=== PATIENT | male | born 1965 | race Caucasian/White ===

== ENCOUNTER → 2020-02-18 09:48 | Outpatient (CLI) | payer BC, SELFPAY ==
--- NOTE | ~2020-02-18 | MR_ITS ---
EXAMINATION: MR knee RT wo con DATE: 02/18/2020 10:32 INDICATION: Anterior and posterior right knee pain post hyperextension injury a few months prior. TECHNIQUE: Magnetic resonance imaging (MRI) of the right knee was performed without intravenous contr ast. Sequences included coronal PD-weighted FSE, coronal PD-weighted FS FSE, sagittal T2-weighted FS E, sagittal PD-weighted FS FSE and axial PD weighted fat saturated FSE. COMPARISON: Radiographs dated 12/17/2019 FINDINGS: Medial compartment: Complex medial meniscal tear involving the body and posterior horn. The posterior horn is small consi stent with loss of meniscal tissue. There is a meniscal flap cysts along the inner margin of the ante rior body, unclear whether this arises from the posterior horn or body. No other displaced meniscal t issue identified. Mild partial thickness cartilage loss with smooth chondral surface along the medial aspect of the anterior weightbearing medial femoral condyle. Focal chondral fissure with tiny focus of underlying subarticular edema at the anteromedial aspect of the medial tibial plateau. Lateral compartment: Longitudinal horizontal tear extending to near the free edge of the body and posterior horn of the la teral meniscus. Deep chondral ulceration at the medial side of the lateral tibial plateau.. There is a small underlying central subchondral osteophyte at the posterior aspect of the lateral tibial plate au underlying the free edge of the posterior horn of the meniscus. Cartilage along the weightbearing lateral femoral condyle appears relatively preserved. Patellofemoral compartment: Deep chondral ulceration at the central aspect of the lateral trochlea with underlying subarticular c ystic change and surrounding marrow edema. Shallow chondral ulceration without degenerative subchondr al changes along the cephalad aspect of the trochlear groove. Shallow fissuring involving less than 5 0% the cartilage thickness and without degenerative subchondral changes at the lateral patellar facet and apical ridge. Ligaments and tendons: Anterior and posterior cruciate ligaments are normal. The medial collateral ligament and fibular naga ateral ligament complex are normal. Mild distal quadriceps tendinopathy. The patellar tendon is kristi l. The visualized medial and lateral hamstring tendons as well as the iliotibial band are normal. Fluid: Minimal joint effusion at the suprapatellar pouch. Multilobulated approximately 1.9-2 0.0 x 1.0 cm ga nglion cyst in the recess posterior superior to the posterior cruciate ligament. No loose osteochondr al bodies identified. Small Mcghee's cyst. Prepatellar edema without discrete bursal fluid collection. Osseous/other: Bone alignment is normal. No fracture or pathologic marrow replacing process. IMPRESSION: 1. Complex medial meniscal tear and a longitudinal horizontal tear of the lateral meniscus. 2. Mild tricompartmental osteoarthritis with regions of high-grade chondromalacia in all 3 compartmen ts. 3. Minimal right knee joint effusion and small Mcghee's cyst. 4. Mild distal quadriceps tendinopathy. Reviewed, dictated and finalized at location A. IMPRESSION: 1. Complex medial meniscal tear and a longitudinal horizontal tear of the later al meniscus. 2. Mild tricompartmental osteoarthritis with regions of high-grade chondromalac ia in all 3 compartments. 3. Minimal right knee joint effusion and small Mcghee's cyst. 4. Mild distal quadriceps tendinopathy.
== END ==
PROVIDERS: Visit Provider Nurse Practitioner Family
DX: M17.11 Unilateral primary osteoarthritis, right knee (principal); M25.461 Effusion, right knee; S83.231A Complex tear of medial meniscus, current injury, right knee, initial encounter; X58.XXXA Exposure to other specified factors, initial encounter
CPT/HCPCS: 73721

== ENCOUNTER 2021-07-21 16:59 | Inpatient (IN) | payer BC, SELFPAY ==
[2021-07-21] VITALS (18 sets, daily range): BP systolic 121–147; BP diastolic 81–97; PULSE 70–102; RESP 18–26; TEMP 36.2–36.8; O2SAT 92–96; BMI 35.9
--- NOTE | ~2021-07-21 | CT_ITS ---
EXAMINATION: CTA chest PE protocol DATE: 07/21/2021 19:29 INDICATION: Shortness of breath. COVID-19 pneumonia. TECHNIQUE: Computed tomography angiography (CTA) of the chest was performed with 100 mL Omnipaque-350 intravenous contrast timed to evaluate the pulmonary arteries. Coronal maximum intensity projection 3D-reconstructions were created by the technologist. Automated exposure control and iterative reconst ruction technique were employed. The dose-length product was 965.88 mGy-cm. COMPARISON: Chest single view 07/21/2021 FINDINGS: There are patchy groundglass and airspace opacities involving all lobes. Calcified left horace g nodules and calcified left hilar and mediastinal lymph nodes are consistent with old granulomatous disease. No pleural effusion. The heart size is normal. No pericardial effusion. There is no pulmonar y embolus. There are changes of cholecystectomy. There is severe cervical spondylosis and mild thorac ic spondylosis. IMPRESSION: 1. No pulmonary embolus. 2. Diffuse lung disease, consistent with COVID-19 pneumonia. Reviewed, dictated and finalized at location A.
--- NOTE | ~2021-07-21 | XR_ITS ---
EXAMINATION: XR chest 1V portable DATE: 07/21/2021 17:51 INDICATION: COVID-19 pneumonia. TECHNIQUE: A single frontal view of the chest was obtained. COMPARISON: Chest 2 views 12/16/2016 FINDINGS: The chest demonstrates clear lungs without pneumonia, pleural effusion, or pneumothorax. Th e heart size is normal. IMPRESSION: 1. No acute cardiopulmonary disease. Reviewed, dictated and finalized at location A.
--- NOTE | 2021-07-21 16:59 | ECG_ITS ---
Measurements Intervals [place] Rate: 94 P: 62 DC: 170 QRS: 13 QRSD: 85 T: 10 QT: 331 QTc: 414 Interpretive Statements SINUS RHYTHM INFERIOR INFARCT, AGE INDETERMINATE BASELINE ARTIFACT- I, II, III, AVR, AVL, AVF, V1-V6 ABNORMAL ECG Electronically Signed On 07-21-2021 20:10:54 CDT by Franki Saba D.O.
[2021-07-21 17:40] LABS: Eosinophils Percent Auto 0.3 % (0-4.4); Hematocrit 44.7 % (42.0-52.0); Immature Granulocyte Absolute 0.02 K/mm3 (0.00-0.031); Immature Granulocyte Percent A 0.5 % (0-0.5); Lymphocytes Absolute Auto 0.87 K/mm3 (0.9-3.2); Lymphocytes Percent Auto 22.9 % (18.3-44.2); Mean Corpuscular HGB Conc 33.6 g/dl (32-36); Mean Corpuscular Hemoglobin 29.6 pg (26-34); Mean Corpuscular Volume 88.2 fl (80-100); Mean Platelet Volume 10.9 fl (7.4-10.4); Monocytes Absolute Auto 0.3 K/mm3 (0.1-0.6); Monocytes Percent Auto 6.6 % (2.6-8.5); Neutrophils Absolute Auto 2.7 K/mm3 (1.3-6.7); Neutrophils Percent Auto 69.7 % (45.5-73.1); Platelet Count Result 173 k/mm3 (150-375); Red Blood Count 5.07 M/mm3 (4.6-6.20); Red Cell Distribution Width 12.5 % (11.5-14.5); White Blood Count 3.8 K/mm3 (4.5-10.0)
[2021-07-21 17:56] LABS: Anion Gap 9 mmol/L (8-16); Blood Urea Nitrogen 18 mg/dL (9-20); Carbon Dioxide 24 mmol/L (22-30); Chloride 101 mmol/L (98-107); Estimated CRCL calculation 116 ml/min; Estimated Glomerular Filt Rate > 60; Glucose 107 mg/dL (65-110); Potassium 3.8 mmol/L (3.4-5.0); Sodium 134 mmol/L (137-145)
--- NOTE | 2021-07-21 18:13 | ED.SOB ---
HPI - SOB/Dyspnea General Chief Complaint: Shortness of Breath/Dyspnea <Akilah Sharp MD - Last Filed: 07/23/21 07:13> Stated Complaint: have covid, breathing difficulty <Akilah Sharp MD - Last Filed: 07/23/21 07:13> Time Seen by Provider: 07/21/21 17:59 <Akilah Sharp MD - Last Filed: 07/23/21 07:13> Source: patient <Akilah Sharp MD - Last Filed: 07/23/21 07:13> Mode of arrival: ambulatory <Akilah Sharp MD - Last Filed: 07/23/21 07:13> Limitations: no limitations <Akilah Sharp MD - Last Filed: 07/23/21 07:13> History of Present Illness HPI Narrative: This is a 56 year old COVID+ male with history of anxiety and hyperlipidemia who presents for evaluation of weakness. Patient states he developed symptoms on Thursday. He reports loss of taste and smell and he developed headache on Thursday. He was found to be positive for covid. He reports due to his loss of taste he has not eaten in 1 week. HE reports nausea with eating but he denies abdominal pain. He reports some sob and a mild cough. He denies chest pain. His main complain is that he is weak. <Akilah Sharp MD - Last Filed: 07/23/21 07:13> Related Data Home Medications: Home Medications Medication Instructions Recorded Confirmed atorvastatin [Lipitor] 20 mg PO DAILY 07/21/21 07/21/21 citalopram [Celexa] 40 mg PO DAILY 07/21/21 07/21/21 <Akilah Sharp MD - Last Filed: 07/23/21 07:13> Allergies/Adverse Reactions: Allergies Allergy/AdvReac Type Severity Reaction Status Date / Time morphine Allergy Severe NAUSEA, Verified 12/03/20 17:27 VOMITING Penicillins AdvReac Unknown Unknown Verified 12/03/20 17:27 <Akilah Sharp MD - Last Filed: 07/23/21 07:13> Review of Systems Review of Systems: All systems reviewed & are unremarkable except as noted in HPI and below <Akilah Sharp MD - Last Filed: 07/23/21 07:13> [facility] [place] Past Medical History Medical History: Medical History (Updated 07/22/21 @ 12:55 by Alisia Perkins PA-C) BMI 36.0-36.9,adult Diabetes mellitus A1C on 02/18/20 was 5.9 Gastroesophageal reflux disease Hypercholesterolemia Morbid (severe) obesity due to excess calories Obesity <Akilah Sharp MD - Last Filed: 07/23/21 07:13> Surgical History Surgical History: Surgical History History of cholecystectomy 1992 Hx of rotator cuff surgery Right 2009-Dr. Lei <Akilah Sharp MD - Last Filed: 07/23/21 07:13> Family History Family History: Family History Father Hypertension Grandparent Family history of lung cancer Mother Family history of coronary artery disease Dementia Hyperlipidemia Stented coronary artery Sibling No problems noted. Other Family history of heart disease in male family member before age 55 <Akilah Sharp MD - Last Filed: 07/23/21 07:13> Social History Social History: Social History Smoking status: Never smoker Second hand tobacco smoke exposure: No Alcohol intake: never Substance use: never Additional occupation/education comments: [employer] Gender identity (if verbalized by the patient): Male Spiritual care concerns: No <Akilah Sharp MD - Last Filed: 07/23/21 07:13> Exam Const: General: no acute distress and alert <Akilah Sharp MD - Last Filed: 07/23/21 07:13> Orientation/consciousness: patient oriented x3 <Akilah Sharp MD - Last Filed: 07/23/21 07:13> Eyes: EOM: EOMs intact bilaterally <Akilah Sharp MD - Last Filed: 07/23/21 07:13> Chest: Chest palpation & inspection: normal inspection of the chest <Akilah Sharp MD - Last Filed: 07/23/21 07:13> Resp: Effort & Inspection: normal respiratory effort and no retractions <Akilah Melendez
[2021-07-21 18:53] LABS: Alanine Aminotransferase 45 U/L (4-50); Albumin Level 4.3 g/dL (3.5-5.1); Alkaline Phosphatase 73 U/L (38-126); Aspartate Amino Transferase 52 U/L (17-59); Bilirubin,Total 0.9 mg/dL (0.2-1.3); Magnesium 1.9 mg/dL (1.6-2.3)
[2021-07-21] MEDS: PANTOPRAZOLE SODIUM IV 40 MG VIAL IV PUSH (19:14)
[2021-07-21] MEDS: SODIUM CHLORIDE 0.9% IV 1,000 ML 999 ML IV CONT (19:14)
[2021-07-21] MEDS: ONDANSETRON INJ 4 MG/2 ML VIAL IV PUSH (19:14)
--- NOTE | 2021-07-21 20:25 | PC.NURSE ---
Walking SpO2 on RA 89-90%
[2021-07-21] MEDS: DEXAMETHASONE SOD PHOS INJ 4 MG/ML VIAL 6 MG IV PUSH (20:41)
[2021-07-21 22:24] LABS: Add Urine Microscopic? YES; Appearance Urine Clear (Clear); Bacteria Urine Trace /hpf; Bilirubin Urine Negative (Negative); Blood Urine Negative (Negative); Color Urine Yellow (Yellow); Glucose Urine UA Negative (Negative); Ketones Urine Trace mg/dL (Negative); Leukocyte Esterase Ur Negative LEU/UL (Negative); Mucus Urine Moderate /lpf; Nitrate Urine Negative (Negative); Protein Urine 2+ mg/dL (Negative); RBC Urine 0-2 /hpf (0-2); Specific Grav Ur > 1.060 (1.001-1.035); Squamous Epithelial Cell Urine Rare /hpf (Few); Urobilinogen Urine Negative mg/dL (<2.0); WBC Urine 0-3 /hpf
--- NOTE | 2021-07-21 22:25 | PM.IMHP ---
H&P: HPI History of Present Illness Date/Time: 07/21/21 22:25 Chief Complaint: General malaise Narrative: This is a 56-year-old male with past medical history significant for dyslipidemia, depression, GERD. Patient tested positive for COVID a roughly 6 days prior to presenting to our emergency room he was having in loss of taste and smell poor appetite body aches and pains chills and fevers and just feeling overall very fatigued and with lack of energy has not been able to eat did in the last several days he try some sport drinks to keep hydrated and finally decided to come to our emergency room due to worsening general malaise fatigue shortness of breath poor appetite, he denies any cough or sputum production no abdominal pain no nausea no vomiting no diarrhea. Preliminary workup was significant for CT PE protocol negative for acute pulmonary embolism but with diffuse lung infiltrates consistent with COVID 19 pneumonia. Review of Systems Review of Systems: Generalized malaise muscle aches and pains loss of taste and smell shortness of breath rigors chills fevers Constitutional: Constitutional: Reports chills, Reports fatigue, Reports fever(s), Reports lethargy, Reports malaise and Reports weakness Eyes: Eyes: Denies change in vision ENT: Denies dysphagia, Denies nasal congestion, Denies nasal discharge, Denies nasal obstruction and Denies odynophagia Cardiovascular: Cardiovascular: Denies chest pain Respiratory: Respiratory: Reports cough Genitourinary: Genitourinary: Reports no additional male genitourinary complaints Musculoskeletal: Musculoskeletal: Reports myalgias Integumentary/Breasts: Skin/Breast: Reports system reviewed and no additional complaints, except as docu Neurologic: Reports system reviewed and no additional complaints, except as documented Psychiatric: Psychiatric: Reports no additional psychiatric complaints Endocrine: Endocrine: Reports no additional endocrine complaints Hematologic/Lymphatic: Hematologic/Lymphatic: Reports no additional hematologic/lymphatic complaints Allergic/Immunologic: Allergic/Immunologic: Reports no additional allergic/immunologic complaints PMFSH Past Medical History Medical History BMI 36.0-36.9,adult Diabetes mellitus A1C on 02/18/20 was 5.9 Gastroesophageal reflux disease Hypercholesterolemia Morbid (severe) obesity due to excess calories Obesity Surgical History Surgical History History of cholecystectomy 1992 Hx of rotator cuff surgery Right 2010-Dr. Lei Family History Family History Father Hypertension Grandparent Family history of lung cancer Mother Family history of coronary artery disease Dementia Hyperlipidemia Stented coronary artery Sibling No problems noted. Other Family history of heart disease in male family member before age 55 Social History Social History Smoking status: Never smoker Second hand tobacco smoke exposure: No Alcohol intake: never Substance use: never Additional occupation/education comments: [employer] Gender identity (if verbalized by the patient): Male Spiritual care concerns: No Meds Home Medications and Allergies Home Medications Medication Instructions Recorded Confirmed Type blood sugar diagnostic #50 each 12/16/19 07/21/21 Rx blood-glucose meter #1 each 12/16/19 07/21/21 Rx famotidine 20 mg tablet 20 mg PO BID #180 tablet 03/21/21 07/21/21 Rx atorvastatin [Lipitor] 20 mg PO DAILY 07/21/21 07/21/21 History citalopram [Celexa] 40 mg PO DAILY 07/21/21 07/21/21 History Allergies Allergy/AdvReac Type Severity Reaction Status Date / Time morphine Allergy Severe NAUSEA, Verified 12/03/20 17:27 VOMITING Penicillins AdvReac Unknown Unknown Verifi
--- NOTE | 2021-07-21 23:40 | ADMGEN ---
This patient, Brain Cortez, was admitted to [facility] Surg Room 333-01. Patient/family oriented to hospital policies and general routines including ID bracelet, bed and alarms, visiting hours, pain management, procedures, bathroom and other care routines, personal items, smoking policy, room service/diet, and visiting hours. Information on how to activate the Rapid Response Team has been discussed. Patient/Family are encouraged to report perceived risks to care and to ask questions if they do not understand what they are told or what they should do.
[2021-07-22] VITALS (10 sets, daily range): BP systolic 110–136; BP diastolic 60–98; PULSE 58–71; RESP 17–22; TEMP 35.7–36.3; O2SAT 91–98
[2021-07-22] MEDS: ACETAMINOPHEN 325 MG TABLET 650 MG PO (00:04)
[2021-07-22 02:59] LABS: Alanine Aminotransferase 40 U/L (4-50); Estimated CRCL calculation 116 ml/min; Estimated Glomerular Filt Rate > 60
[2021-07-22 03:11] LABS: INR 0.9; Prothrombin Time 12.4 Seconds (11.1-14.7)
[2021-07-22] MEDS: REMDESIVIR 200 MG/NS 250 ML 200 MG/250 ML BAG 250 MG IVPB (03:23)
[2021-07-22] MEDS: ENOXAPARIN 40 MG/0.4 ML SYRINGE SUB-Q ×2 (10:56→22:13)
[2021-07-22] MEDS: CITALOPRAM HYDROBROMIDE 20 MG TABLET 40 MG PO (10:58)
[2021-07-22] MEDS: ATORVASTATIN 20 MG TABLET PO (10:58)
[2021-07-22] MEDS: FAMOTIDINE 20 MG TABLET PO ×2 (10:59→17:18)
--- NOTE | 2021-07-22 12:21 | PM.IMPN ---
Progress Note: A&P Assessment and Plan (1) Pneumonia due to 2019-nCoV: Code(s): U07.1 - COVID-19; J12.82 - Pneumonia due to coronavirus disease 2019 Status: Acute Assessment and Plan: Tested positive on 07/15/21 at outside facility. CTA showed diffuse lung disease consistent with COVID 19 pneumonia. Continue remdesivir, started on 07/22. ALT within normal limits Continue dexamethasone, started on 07/21 Convalescent plasma ordered Supportive care to include bronchodilators, expectorants, antipyretics, and incentive spirometry Trend acute phase reactants Continue isolation precautions The patient is not vaccinated for COVID-19. Reports he also had COVID-19 about 1 year ago. (2) Mixed hyperlipidemia: Code(s): E78.2 - Mixed hyperlipidemia Status: Acute Assessment and Plan: LFTs wnl. Continue atorvastatin (3) Diabetes mellitus: Code(s): E11.9 - Type 2 diabetes mellitus without complications Status: Acute Assessment and Plan: Last documented A1c is 5.9 from January 2020. Initiate Accu-Cheks, sliding scale insulin, hypoglycemic protocol Check updated A1c Subjective Date/time seen: 07/22/21 12:21 Interval history: Date of service: 07/22/2021 Brain Cortez is a 56-year-old male with history diabetes mellitus, hyperlipidemia who is seen in follow-up for COVID 19 pneumonia. He is feeling very weak and run down. He reports his biggest complaint is that he lacks stamina. He is able to get up and ambulate back and forth between his bed and the restroom, but does note dyspnea on exertion. He also endorses conversational dyspnea and feels that he is working to breathe when talking on the phone. He has occasional cough, worsened with deep inspiration. Very infrequent clear sputum production. Denies wheezing, orthopnea, PND. No nausea, vomiting, fevers, or chills. He had been having diarrhea but has not had any stools for the past 2 days. He endorses anosmia and dysgeusia and has had overall poor p.o. intake, stating he simply has no appetite. He endorses generalized body aching. He denies urinary symptoms. He had a frontal headache that seems to be improving. Denies dizziness or lightheadedness. At the patient's request, I attempted to call his to provide updates. Left a voicemail. Review of Systems Review of Systems: All systems reviewed & are unremarkable except as noted in HPI and below Exam Narrative: Mr. Cortez is a well-nourished, well-appearing 56-year-old male who is lying supine in bed. He appears comfortable and is in NARD. Neuro: awake, alert and oriented x4, speech clear, no focal neuro deficits noted HEENMT: normocephalic, atraumatic, EOMI, sclerae anicteric, moist oral mucosa Neck: supple, no lymphadenopathy Respiratory: Diminished breath sounds bilaterally, no crackles, wheezes, or rhonchi. Conversational dyspnea noted. No increased work of breathing, no use of accessory muscles. Dry cough noted on exam. Cardio: regular rate, regular rhythm with S1-S2 Abdomen: nondistended, normoactive bowel sounds, soft, nontender to palpation Extremities: no edema, erythema, or tenderness to palpation, DP pulses 2+ bilaterally Skin: no rashes or lesions, warm and dry Psych: appropriate mood and affect, judgment and insight intact Objective Data Vital Signs Vital Signs: Vital Signs - 24 hr 07/21/21 17:01 07/21/21 18:01 07/21/21 18:16 Temperature 97.2 F L Pulse Rate 102 H 99 99 Respiratory Rate 18 26 H 26 H Blood Pressure 145/87 H 133/86 147/89 H Pulse Oximetry 95 94 92 07/21/21 18:31 07/21/21 19:18 07/21/21 20:00 Temperature Pulse Rate 99 99 82 Respiratory Rate 26 H 26 H 24 H Blood Pressure 144/97 H 121/84 144/97 H Pulse Oximetry 94 94 94 07/21/21 21:00 07/21/21 21:01 07/21/21 21:16 Temperature Pulse Rate 70 Respiratory Rate 24 H Blood Pressure 144/82 H Pulse Oximetry 95 96 96 07/21/21
[2021-07-22] MEDS: SODIUM CHLORIDE 0.9% IV 250 ML 30 ML IV CONT (12:51)
[2021-07-23] VITALS (7 sets, daily range): BP systolic 115–135; BP diastolic 59–82; PULSE 51–61; RESP 16–20; TEMP 36.2–37.2; O2SAT 94–96
[2021-07-23 06:45] LABS: Hematocrit 36.9 % (42.0-52.0); Hemoglobin 12.4 g/dL (14.0-18.0); Mean Corpuscular HGB Conc 33.6 g/dl (32-36); Mean Corpuscular Hemoglobin 29.6 pg (26-34); Mean Corpuscular Volume 88.1 fl (80-100); Mean Platelet Volume 10.8 fl (7.4-10.4); Platelet Count Result 168 k/mm3 (150-375); Red Blood Count 4.19 M/mm3 (4.6-6.20); Red Cell Distribution Width 12.3 % (11.5-14.5); White Blood Count 6.5 K/mm3 (4.5-10.0)
[2021-07-23 06:57] LABS: Prothrombin Time 13.4 Seconds (11.1-14.7)
[2021-07-23 07:49] LABS: Alanine Aminotransferase 38 U/L (4-50); Albumin Level 3.7 g/dL (3.5-5.1); Alkaline Phosphatase 53 U/L (38-126); Anion Gap 5 mmol/L (8-16); Aspartate Amino Transferase 40 U/L (17-59); Bilirubin,Total 0.7 mg/dL (0.2-1.3); Blood Urea Nitrogen 23 mg/dL (9-20); CRP 2.1 mg/dL (<1.0); Calcium 8.9 mg/dL (8.4-10.2); Carbon Dioxide 27 mmol/L (22-30); Chloride 105 mmol/L (98-107); Estimated CRCL calculation 116 ml/min; Estimated Glomerular Filt Rate > 60; Glucose 133 mg/dL (65-110); Lactate Dehydrogenase 538 U/L (313-618); Potassium 4.5 mmol/L (3.4-5.0); Sodium 137 mmol/L (137-145)
[2021-07-23 09:44] LABS: Hemoglobin A1C 6.5 % (<5.7)
[2021-07-23] MEDS: FAMOTIDINE 20 MG TABLET PO ×2 (09:58→16:45)
[2021-07-23] MEDS: ATORVASTATIN 20 MG TABLET PO (09:58)
[2021-07-23] MEDS: ENOXAPARIN 40 MG/0.4 ML SYRINGE SUB-Q ×2 (09:58→22:01)
[2021-07-23] MEDS: CITALOPRAM HYDROBROMIDE 20 MG TABLET 40 MG PO (09:58)
[2021-07-23] MEDS: REMDESIVIR 100 MG/NS 250 ML 100 MG/250 ML BAG 250 MG IVPB (10:00)
--- NOTE | 2021-07-23 15:42 | PM.IMPN ---
Progress Note: A&P Assessment and Plan (1) Pneumonia due to 2019-nCoV: Code(s): U07.1 - COVID-19; J12.82 - Pneumonia due to coronavirus disease 2019 Status: Acute Assessment and Plan: Tested positive on 07/15/21 at outside facility Not vaccinated, reported having COVID 19 1 year ago also CTA showed diffuse lung disease consistent with COVID 19 pneumonia Continue remdesivir, started on 07/22, day 2/5 ALT within normal limits Continue dexamethasone, started on 07/21 Convalescent plasma ordered Wean O2 to keep sats >92% Supportive care (2) Mixed hyperlipidemia: Code(s): E78.2 - Mixed hyperlipidemia Status: Acute Assessment and Plan: LFTs wnl Continue atorvastatin (3) Diabetes mellitus: Code(s): E11.9 - Type 2 diabetes mellitus without complications Status: Acute Assessment and Plan: Hgb A1c 6.5 Continue accu-Cheks, sliding scale insulin, hypoglycemic protocol Monitor Subjective Date/time seen: 07/23/21 15:42 Interval history: pt seen and evaluated; no acute events overnight, on 2L Review of Systems Review of Systems: All systems reviewed & are unremarkable except as noted in HPI and below Exam Const: General: no acute distress, alert and awake Orientation/consciousness: patient oriented x3 HENMT: Head: normocephalic and atraumatic Ears: hearing grossly normal bilaterally and external ears normal Face and sinus: face symmetric Mouth: Yes Normal oral and palatal mucosa present Eyes: Pupils: Equal, round and reactive pupils present EOM: EOMs intact bilaterally Neck: Neck: full ROM, trachea midline and no JVD Thyroid: thyroid normal Chest: Chest palpation & inspection: normal inspection of the chest Resp: Effort & Inspection: normal respiratory effort Cardio: Jugular venous distension: no JVD Rate: regular rate Heart sounds: S1 normal heart sound present and S2 normal heart sound present GI: Inspection: normal to inspection GI Palp: Yes Soft to palpation Percussion: Yes normal to percussion Auscultation: normal bowel sounds : General: Yes no CVA tenderness Back/Spine/Pelvis: Back: no CVA tenderness Skin: General skin exam: normal color Rashes: no rashes Neuro: General: patient oriented x3 and CN's II-XI intact bilaterally Cranial nerves: Yes Equal, round and reactive pupils present Speech: normal speech Psych: Appearance: grossly normal Affect: normal affect Judgement: Good judgement present (Psych) Objective Data Vital Signs Vital Signs: Vital Signs - 24 hr 07/22/21 20:00 07/22/21 22:11 07/23/21 00:02 Temperature 36.1 C L 36.2 C L Pulse Rate 60 60 Respiratory Rate 17 20 Blood Pressure 113/67 120/78 Pulse Oximetry 96 98 96 07/23/21 05:31 07/23/21 08:00 07/23/21 09:55 Temperature 36.2 C L 36.9 C Pulse Rate 61 61 Respiratory Rate 18 16 Blood Pressure 115/66 118/82 Pulse Oximetry 95 96 95 07/23/21 12:00 Temperature 37.2 C Pulse Rate 51 L Respiratory Rate 16 Blood Pressure 134/73 Pulse Oximetry 96 Intake/Output Intake/Output: Intake & Output 07/20/21 07/21/21 07/22/21 07/23/21 23:59 23:59 23:59 23:59 Intake Total 1000 1440 1030 Output Total 800 Balance 3381 844 2265 Meds/Results Medications: Active Medications Generic Name Dose Route Start Last Admin Trade Name Freq PRN Reason Stop Dose Admin Acetaminophen 650 mg 07/21/21 21:40 07/22/21 00:04 Acetaminophen 325 Mg Tablet PO 650 mg Q4H PRN Administration Mild Pain (1-3) or Fever Atorvastatin Calcium 20 mg 07/22/21 09:00 07/23/21 09:58 Atorvastatin 20 Mg Tablet PO 20 mg DAILY ELENA Administration Citalopram Hydrobromide 40 mg 07/22/21 09:00 07/23/21 09:58 Citalopram Hydrobromide 20 Mg Tablet PO 40 mg DAILY ELENA Administration Dexamethasone Sodium Phosphate 6 mg 07/22/21 09:00 07/23/21 11:21 Dexamethasone Sod Phos Inj 10 Mg/Ml 1 Ml Vial IV PUSH 07/31/21 09:01 6 mg DAILY ELENA A
[2021-07-24] VITALS (7 sets, daily range): BP systolic 114–129; BP diastolic 65–79; PULSE 52–94; RESP 14–20; TEMP 36.5–36.9; O2SAT 92–95
[2021-07-24 06:23] LABS: INR 0.9; Prothrombin Time 12.5 Seconds (11.1-14.7)
[2021-07-24 06:32] LABS: Alanine Aminotransferase 42 U/L (4-50); Estimated CRCL calculation 129 ml/min; Estimated Glomerular Filt Rate > 60
[2021-07-24 09:43] LABS: Hematocrit 37.3 % (42.0-52.0); Hemoglobin 12.4 g/dL (14.0-18.0)
[2021-07-24] MEDS: ATORVASTATIN 20 MG TABLET PO (09:46)
[2021-07-24] MEDS: CITALOPRAM HYDROBROMIDE 20 MG TABLET 40 MG PO (09:46)
[2021-07-24] MEDS: ENOXAPARIN 40 MG/0.4 ML SYRINGE SUB-Q (09:47)
[2021-07-24] MEDS: FAMOTIDINE 20 MG TABLET PO (09:47)
[2021-07-24] MEDS: REMDESIVIR 100 MG/NS 250 ML 100 MG/250 ML BAG 250 MG IVPB (09:47)
--- NOTE | 2021-07-24 11:26 | PM.DS ---
DS: Admitting Diagnosis Admitting Diagnosis COVID-19 pneumonia DS: Discharge Diagnosis Discharge Diagnosis (1) Pneumonia due to 2019-nCoV: Code(s): U07.1 - COVID-19; J12.82 - Pneumonia due to coronavirus disease 2019 Status: Acute Assessment and Plan: Tested positive on 07/15/21 at outside facility. CTA showed diffuse lung disease consistent with COVID 19 pneumonia. Received IV remdesivir and dexamethasone. Will continue p.o. dexamethasone at home to complete 10 days. Received convalescent plasma transfusion on 07/22/2021. Supportive care provided including bronchodilators, expectorants, antipyretics, and incentive spirometry. He was weaned to room air. Home O2 eval performed and he had no ongoing oxygen requirements. Discussed COVID-19 precautions. He has not been vaccinated for COVID-19 and reported he believed he had COVID-19 1 year ago when the rest of his family was ill, however he did not get tested.. (2) Mixed hyperlipidemia: Code(s): E78.2 - Mixed hyperlipidemia Status: Acute Assessment and Plan: LFTs wnl. Continue atorvastatin (3) Diabetes mellitus: Code(s): E11.9 - Type 2 diabetes mellitus without complications Status: Acute Assessment and Plan: A1c is 6.5. This has been controlled with diet and exercise and he is not on any medications. Continue monitoring blood sugars and follow-up with PCP for further evaluation. DS: Summary Hospital Course Hospital Course: Date of admission: 07/21/2021 Date of discharge: 07/24/2021 Brain Cortez is a 56-year-old male with history diabetes mellitus and hyperlipidemia who presented to the emergency department on 07/21/2021 with complaints of weakness, headache, and loss of taste and smell. He had tested positive for COVID-19 outside facility. On presentation to the emergency department, his vital signs are stable, he was afebrile, CBC and BMP unremarkable, CXR with no acute cardiopulmonary disease, and CTA with no PE and evidence of diffuse lung disease consistent with COVID 19 pneumonia. He was admitted to the hospitalist service for further evaluation management. Please see above for further details. He had significant symptomatic improvement and was feeling much better. He requested discharge home. He was no longer requiring supplemental oxygen and given his overall improvement, he was determined to no longer require inpatient care. We discussed worrisome signs and symptoms for which to return and he was educated on his medications. COVID-19 precautions discussed. He felt comfortable with plans to return home and will follow-up with his PCP promptly. He was discharged in hemodynamically stable condition on 07/24/2021 Status at Discharge Functional status at discharge: independent ambulation Overall status at discharge: patient is progressing back to baseline Time Spent with Patient Time attestation: Total time spent providing and/or coordinating discharge services: 45 minutes Time spent: Greater than 30 minutes Exam Narrative: Mr. Cortez is a well-nourished, well-appearing 56-year-old male who is lying supine in bed. He appears comfortable and is in NARD. Neuro: awake, alert and oriented x4, speech clear, no focal neuro deficits noted HEENMT: normocephalic, atraumatic, EOMI, sclerae anicteric, moist oral mucosa Neck: supple, no lymphadenopathy Respiratory: Clear to auscultation bilaterally without crackles, wheezes, or rhonchi. Nonlabored breathing Cardio: regular rate, regular rhythm with S1-S2 Abdomen: nondistended, normoactive bowel sounds, soft, nontender to palpation Extremities: no edema, erythema, or tenderness to palpation, DP pulses 2+ bilaterally Skin: no rashes or lesions, warm and dry Psych: appropriate mood and affect, judgment and insight intact DS: Data Data Completed and Pending Labs on day of discharge: Labs from last 24 hours 07/24/21 07/24/21 07/24/21 06:01 06:01
--- NOTE | 2021-07-24 11:31 | PCRCNOTE ---
HOME O2 EVAL COMPLETE, NO REQUIREMENTS
== END 2021-07-24 13:06 | disposition home or self-care (01) | DRG 177 ==
LOC: ANHED 17:59 → ANH3MEDSUR 22:24
PROVIDERS: Emergency Medicine; Physician Assistant; Admitting Provider Internal Medicine; Emergency Provider General Practice; PCP Family Medicine; Visit Provider Internal Medicine
DX: U07.1 COVID-19 (principal); J12.82 Pneumonia due to coronavirus disease 2019; E78.2 Mixed hyperlipidemia; E11.9 Type 2 diabetes mellitus without complications; F41.9 Anxiety disorder, unspecified; K21.9 Gastro-esophageal reflux disease without esophagitis; F32.9 Major depressive disorder, single episode, unspecified; M17.11 Unilateral primary osteoarthritis, right knee; M16.11 Unilateral primary osteoarthritis, right hip; E66.01 Morbid (severe) obesity due to excess calories; Z68.35 Body mass index [BMI] 35.0-35.9, adult; Z90.49 Acquired absence of other specified parts of digestive tract
CPT/HCPCS: 36415; 36430; 71045; 71275; 80048; 80053; 80076; 81001; 82565; 82728; 83036; 83615; 83735; 84460; 85014; 85018; 85025; 85027; 85380; 85610; 86140; 86900; 86901; 93005; 94618; 96361; 96365; 96372; 96375; 96376; 99285; A9270; C9113; G0378; J1100; J1650; J2405; J3010; J7030; J7050; P9059; Q9967

== ENCOUNTER → 2021-08-06 07:07 | Outpatient (CLI) | payer BC, SELFPAY ==
--- NOTE | ~2021-08-06 | XR_ITS ---
EXAMINATION: XR chest 2V DATE: 08/06/2021 07:16 INDICATION: COVID 19 pneumonia, shortness of breath TECHNIQUE: Frontal and lateral views of the chest are obtained COMPARISON: 07/21/2021 FINDINGS: Patchy bilateral airspace opacities persist with interval improvement. There is no pleural effusion or pneumothorax. The cardiomediastinal silhouette is normal. There is mild thoracic spondylo sis. IMPRESSION: 1. Patchy bilateral airspace opacities with interval improvement, consistent with resolving COVID 19 pneumonia. Reviewed, dictated and finalized at location B. IMPRESSION: 1. Patchy bilateral airspace opacities with interval improvement, consistent wi th resolving COVID 19 pneumonia.
== END ==
PROVIDERS: PCP Family Medicine; Visit Provider Nurse Practitioner Family
DX: U07.1 COVID-19 (principal); J12.82 Pneumonia due to coronavirus disease 2019; R91.8 Other nonspecific abnormal finding of lung field
CPT/HCPCS: 71046

== ENCOUNTER 2021-08-13 06:59 | Outpatient (CLI) | payer BC, SELFPAY ==
--- NOTE | ~2021-08-13 | XR_ITS ---
EXAMINATION: XR chest 2V 08/13/2021 07:17 INDICATION: Shortness of breath. Covid 19. PROCEDURE: 2 view chest COMPARISON: Comparison to multiple prior studies sequentially, with oldest reviewed study dated 02/17. FINDINGS: The lungs are clear. The cardiomediastinal silhouette is within normal limits. There are no pleural effusions. There is no pneumothorax suspected. There are cholecystectomy clips. IMPRESSION: 1: NO ACUTE CARDIOPULMONARY DISEASE. Reviewed, dictated and finalized at location A.
== END 2021-08-13 07:00 | disposition home or self-care (01) ==
LOC: ANHIMG 07:04
PROVIDERS: PCP Family Medicine; Visit Provider Nurse Practitioner Family
DX: U07.1 COVID-19 (principal)
CPT/HCPCS: 71046

== ENCOUNTER → 2022-04-07 12:10 | Outpatient (CLI) | payer BC, SELFPAY ==
--- NOTE | ~2022-04-07 | MR_ITS ---
EXAMINATION: MR brain/brain stem wo/w con DATE: 04/07/2022 12:58 INDICATION: Amnesia TECHNIQUE: Magnetic resonance imaging (MRI) of the brain and brainstem was performed without and with 20 mL Multihance intravenous contrast. Sequences included sagittal and axial T1-weighted SE, axial d iffusion-weighted FS SE, axial T2*-weighted GRE, axial T2-weighted FLAIR, and axial T2-weighted FSE. Postcontrast axial and coronal T1-weighted SE was obtained. Apparent diffusion coefficient (ADC) maps were created. COMPARISON: None. FINDINGS: There are no areas of restricted diffusion to suggest acute infarction. No intracranial hemorrhage or abnormal intracranial mass lesion. There are no intraparenchymal signal abnormalities seen on the ot her pulse sequences. The ventricles are symmetric and normal in size. There are no abnormal extra-axi al fluid collections. Flow voids are seen in the cerebral arteries on the T2-weighted sequences consi stent with their expected patency. Mild mucosal thickening in the bilateral ethmoid and maxillary sin uses with posterior layering mucus in the right maxillary sinus. Visualized orbits and soft tissues a re unremarkable. There are no areas of abnormal enhancement on the post contrast images. IMPRESSION: 1. Normal brain. 2. Sinus disease with air-fluid level in right maxillary sinus. Correlate clinically for acute sinusi tis. Reviewed, dictated and finalized at location A. IMPRESSION: 1. Normal brain. 2. Sinus disease with air-fluid level in right maxillary sinus. Correlate clini anusha for acute sinusitis.
== END ==
PROVIDERS: PCP Family Medicine; Visit Provider Nurse Practitioner Family
DX: R41.3 Other amnesia (principal); J32.0 Chronic maxillary sinusitis
CPT/HCPCS: 70553; A9577

== ENCOUNTER → 2022-08-11 16:08 | Outpatient (CLI) | payer BC, SELFPAY ==
--- NOTE | ~2022-08-11 | XR_ITS ---
EXAMINATION: XR knee LT min 4V DATE: 08/11/2022 16:28 INDICATION: Left knee lump. TECHNIQUE: 4 views of left knee were obtained. COMPARISON: Left knee radiographs 07/04/2013 FINDINGS: Bone alignment is normal. No fracture. There is mild osteoarthritis of medial and patellofe moral compartments. No knee joint effusion. There is no abnormal mass. IMPRESSION: 1. Mild left knee osteoarthritis. Reviewed, dictated and finalized at location A.
== END ==
PROVIDERS: PCP Family Medicine; Visit Provider Family Medicine
DX: R22.9 Localized swelling, mass and lump, unspecified (principal); M17.12 Unilateral primary osteoarthritis, left knee
CPT/HCPCS: 73564

== ENCOUNTER 2022-08-21 15:25 | Observation (INO) | payer BC, SELFPAY ==
[2022-08-21] VITALS (12 sets, daily range): BP systolic 113–160; BP diastolic 61–95; PULSE 54–72; RESP 13–20; TEMP 36.1–36.7; O2SAT 98–99; BMI 34.7
--- NOTE | ~2022-08-21 | CT_ITS ---
EXAMINATION: CTA chest DATE: 08/21/2022 15:57 INDICATION: Aortic dissection TECHNIQUE: Computed tomography angiography (CTA) of the chest was performed with 100 mL Omnipaque-350 intravenous contrast timed to evaluate the pulmonary arteries. Coronal maximum intensity projection 3D-reconstructions were created by the technologist. Automated exposure control and iterative reconst ruction technique were employed. Exam dose: 1030.44 mGy-cm total exam DLP. COMPARISON: None. FINDINGS: There is no thoracic aortic aneurysm or dissection. There is cardiomegaly. No pericardial or pleural effusion. There is nonspecific mild bilateral hilar and mediastinal lymphadenopathy. There is patchy mild ground glass density scattered throughout the lungs There is diffuse hepatic steatosis. Status post cholecystectomy. Diverticulosis of the colon. No suspicious osteolytic or osteosclerotic lesions. IMPRESSION: No thoracic aortic dissection Patchy bilateral ground glass infiltrates and nonspecific mild bilateral hilar and mediastinal lympha denopathy, likely reactive Reviewed, dictated and finalized at Location A. Reviewed, dictated and finalized at location B. IMPRESSION: No thoracic aortic dissection Patchy bilateral ground glass infiltrates and nonspecific mild bilateral hilar and mediastinal lymphadenopathy, likely reactive
--- NOTE | ~2022-08-21 | XR_ITS ---
EXAMINATION: XR chest 1V portable DATE: 08/21/2022 16:10 INDICATION: Chest pain. TECHNIQUE: A single frontal view of the chest was obtained. COMPARISON: Chest 2 views 08/13/2021, chest CT 08/21/2022 FINDINGS: The chest demonstrates clear lungs without pneumonia, pleural effusion, or pneumothorax. Th e heart size is normal. IMPRESSION: 1. No acute cardiopulmonary disease. Reviewed, dictated and finalized at location A.
--- NOTE | 2022-08-21 15:30 | ECG_ITS ---
Measurements Intervals [place] Rate: 61 P: 23 SD: 160 QRS: 11 QRSD: 92 T: 34 QT: 381 QTc: 386 Interpretive Statements SINUS RHYTHM BASELINE ARTIFACT- I, II, III, AVR, V1, V4-V5 NORMAL ECG COMPARED TO ECG 07/21/2021 17:11:19 NO SIGNIFICANT CHANGES Electronically Signed On 08-21-2022 16:06:48 CDT by Franki Saba D.O.
[2022-08-21] MEDS: fentaNYL CITRATE INJ (*CRX) 100 MCG/2 ML VIAL IV PUSH (15:32)
--- NOTE | 2022-08-21 15:42 | ED.CHESTPAIN ---
HPI - Chest Pain General Chief Complaint: Chest Pain Stated Complaint: unspec Time Seen by Provider: 08/21/22 15:30 History of Present Illness HPI narrative: Patient is a 57-year-old male with a history of hyperlipidemia, GERD presenting with chest pain. Patient states that about 2 days ago he had substernal chest pressure and he went to the ER. He was able to be discharged but was told to return if his symptoms returned. Today, he developed chest pain that radiates to his upper back. Associated with shortness of breath. States that his brother and his mother both have had multiple cardiac stents so he is concerned it is his heart. He denies fevers, headache, cough, abdominal pain, nausea or vomiting, diarrhea, leg swelling, dysuria. Related Data Allergies Allergy/AdvReac Type Severity Reaction Status Date / Time morphine Allergy Severe NAUSEA, Verified 08/20/22 09:19 VOMITING Penicillins AdvReac Unknown Unknown Verified 08/20/22 09:19 Review of Systems Review of Systems: All systems reviewed & are unremarkable except as noted in HPI and below PMFSH Past Medical History Medical History BMI 33.0-33.9,adult BMI 36.0-36.9,adult BMI 37.0-37.9, adult COVID-19 Diabetes mellitus A1C on 02/18/20 was 5.9 Gastroesophageal reflux disease Herpes zoster Hypercholesterolemia Morbid (severe) obesity due to excess calories Obesity Surgical History Surgical History History of cholecystectomy 1992 Hx of rotator cuff surgery Right 2009-Dr. 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 HEAD: Normocephalic, atraumatic. EYES: PERRLA and EOMI. ENT: Nares clear, no rhinorrhea or epistaxis. Mucous membranes moist. NECK: Supple. CHEST: Clear to auscultation. No respiratory distress. HEART: Regular rate and rhythm. No murmur heard. Radial and DP pulses 2+ ABDOMEN: Soft, nontender, nondistended, normal active bowel sounds. EXTREMITIES: Normal range of motion. No edema. SKIN: Warm, dry, no rash. NEURO: No focal deficits. Alert and oriented x3. PSYCH: Normal mood and affect. Course Vital Signs Vital signs: Vital Signs Temperature 97 F L 08/21/22 15:30 Pulse Rate 67 08/21/22 15:30 Respiratory Rate 18 08/21/22 15:30 Pulse Oximetry 99 08/21/22 15:30 Oxygen Delivery Room Air 08/21/22 15:30 Temperature 97 F L 08/21/22 15:30 Pulse Rate 54 L 08/21/22 21:35 Respiratory Rate 13 08/21/22 21:35 Blood Pressure 113/61 08/21/22 21:09 Pulse Oximetry 99 08/21/22 21:35 Oxygen Delivery Room Air 08/21/22 19:10 MDM - Chest Pain MDM Narrative Medical decision making narrative: Patient is a 57-year-old male with history as above presenting with chest pain. Patient is hypertensive, otherwise vitals were within normal limits. Patient is distressed secondary to pain on arrival. Exam remarkable for the above. EKG per my interpretation shows normal sinus rhythm, normal axis and intervals, no ST elevations or depressions. Blood work is unremarkable. Troponins are undetectable.
[2022-08-21 15:44] LABS: Basophils Absolute Auto 0.1 K/mm3 (0.0-0.1); Basophils Percent Auto 0.6 % (0.2-1.2); Eosinophils Absolute Auto 0.2 K/mm3 (0-0.3); Eosinophils Percent Auto 2.2 % (0-4.4); Hematocrit 42.8 % (42.0-52.0); Hemoglobin 14.2 g/dL (14.0-18.0); Immature Granulocyte Absolute 0.02 K/mm3 (0.00-0.031); Immature Granulocyte Percent A 0.3 % (0-0.5); Mean Corpuscular HGB Conc 33.2 g/dl (32-36); Mean Corpuscular Hemoglobin 29.8 pg (26-34); Mean Corpuscular Volume 89.7 fl (80-100); Mean Platelet Volume 10.7 fl (7.4-10.4); Monocytes Absolute Auto 0.5 K/mm3 (0.1-0.6); Monocytes Percent Auto 6.9 % (2.6-8.5); Platelet Count Result 227 k/mm3 (150-375); Red Blood Count 4.77 M/mm3 (4.6-6.20); Red Cell Distribution Width 13.3 % (11.5-14.5); White Blood Count 7.8 K/mm3 (4.5-10.0)
[2022-08-21 15:52] LABS: Estimated Glomerular Filt Rate > 60
[2022-08-21 15:54] LABS: Prothrombin Time 12.9 Seconds (11.1-14.7)
[2022-08-21 16:02] LABS: Partial Thromboplastin Time 25.9 SECONDS (22.3-36.8)
[2022-08-21 16:04] LABS: Alanine Aminotransferase 34 U/L (6-50); Albumin Level 4.8 g/dL (3.5-5.1); Alkaline Phosphatase 81 U/L (38-126); Anion Gap 11 mmol/L (8-16); Aspartate Amino Transferase 35 U/L (17-59); Bilirubin,Total 0.8 mg/dL (0.2-1.3); Blood Urea Nitrogen 20 mg/dL (9-20); Calcium 9.6 mg/dL (8.4-10.2); Carbon Dioxide 23 mmol/L (22-30); Chloride 107 mmol/L (98-107); Estimated Glomerular Filt Rate > 60; Glucose 133 mg/dL (65-110); Potassium 4.3 mmol/L (3.4-5.0); Sodium 141 mmol/L (137-145)
[2022-08-21 16:16] LABS: Troponin I < 0.012 ng/mL (0.000-0.034)
[2022-08-21 18:01] LABS: SARS-CoV-2 RNA PCR Negative
[2022-08-21 18:54] LABS: Troponin I < 0.012 ng/mL (0.000-0.034)
--- NOTE | 2022-08-21 21:33 | PM.IMHP ---
H&P: HPI History of Present Illness Date/Time: 08/21/22 21:33 Chief Complaint: chest pain/shortness of breath Narrative: Patient is a 57-year-old male with a history of hyperlipidemia, GERD presenting with chest pain and shortness that started this afternoon. he was out picking up sticks in his yard. his chest pain was pressre like sensation which radaited to the back in betwen the scapula which was sharp in quality. this was asosciated with shortness of breath. brought him to the ED. he got a aspirin. he finally got fentanyl which hleped. he states that no nasuea, vomiting,abdominal pain. no urinary symptoms. he also went ot ED 2 days ago at [facility] with similar problem and workup was negative there. he was given nitro which dropped his bp en route to the ED. he also subseqnelty saw his PCP yesterday and refeered to Programmable Logic Controller Assembler who he is scheduled to see on . he reprots taht he is gong through a stress as he recently lost his dad and is traveling to [place] this weekend. Review of Systems Review of Systems: - CONSTITUTIONAL: Denies weight loss, fever and chills. - HEENT: Denies changes in vision and hearing - RESPIRATORY: repoerts SOB and cough. - CV: Denies palpitations and repoerts CP. - GI: Denies abdominal pain, nausea, vomiting and diarrhea. - : Denies dysuria and urinary frequency. - MSK: Denies myalgia and joint pain. - SKIN: Denies rash and pruritus. - NEUROLOGICAL: Denies headache and syncope. - PSYCHIATRIC: Denies recent changes in mood. Denies anxiety and depression. All systems reviewed & are unremarkable except as noted in HPI and below PMFSH Past Medical History Medical History BMI 33.0-33.9,adult BMI 36.0-36.9,adult BMI 37.0-37.9, adult COVID-19 Diabetes mellitus A1C on 02/18/20 was 5.9 Gastroesophageal reflux disease Herpes zoster Hypercholesterolemia Morbid (severe) obesity due to excess calories Obesity Surgical History Surgical History History of cholecystectomy 1991 Hx of rotator cuff surgery Right 2010-Dr. 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 Gender identity (if verbalized by the patient): Male Spiritual care concerns: No Meds Home Medications and Allergies Home Medications Medication Instructions Recorded Confirmed Type blood sugar diagnostic (OneTouch #50 ea 12/16/19 08/20/22 Rx Ultra Blue Test Strip) blood-glucose meter (OneTouch #1 ea 12/16/19 08/20/22 Rx Ultra2 Meter kit) famotidine 20 mg tablet (Pepcid) 20 mg PO BID #180 tabs 09/17/21 08/20/22 Rx atorvastatin 20 mg tablet (Lipitor) 20 mg PO DAILY #90 tabs 04/14/22 08/20/22 Rx nabumetone 500 mg tablet 500 mg PO BID #180 tabs 04/14/22 08/20/22 Rx citalopram 40 mg tablet (Celexa) 40 mg PO DAILY #90 tabs 08/20/22 08/20/22 Rx trazodone 50 mg tablet 50 mg PO QHS PRN sleep #60 tabs 08/20/22 08/20/22 Rx Allergies Allergy/AdvReac Type Severity Reaction Status Date / Time morphine Allergy Severe NAUSEA, Verified 08/20/22 09:19 VOMITING Penicillins AdvReac Unknown Unknown Verified 08/20/22 09:19 Vital Signs Vital Signs - 24 hr 08/21/22 19:17 08/21/22 15:30 08/21/22 15:45 Temperature 97 F L Pulse Rate
[2022-08-21 21:46] LABS: NT Pro B Type Natriuretic Pept 50 pg/mL (5-100)
[2022-08-21 21:49] LABS: Troponin I < 0.012 ng/mL (0.000-0.034)
--- NOTE | 2022-08-21 22:05 | ADMGEN ---
This patient, Brain Cortez, was admitted to IMU Room 202- AT 2205. Patient/family oriented to hospital policies and general routines including ID bracelet, bed and alarms, visiting hours, pain management, procedures, bathroom and other care routines, personal items, smoking policy, room service/diet, and visiting hours. Information on how to activate the Rapid Response Team has been discussed. Patient/Family are encouraged to report perceived risks to care and to ask questions if they do not understand what they are told or what they should do.
[2022-08-21 22:45] LABS: Cholesterol 186 mg/dL (0-200); HDL Direct 37 mg/dL; Triglycerides 221 mg/dL (<150)
[2022-08-21 22:54] LABS: LDL Cholesterol Direct 102 mg/dL
[2022-08-21] MEDS: DOXYCYCLINE 100 MG/NS 100 ML 100 MG/100 ML BAG IVPB (23:37)
[2022-08-22] VITALS (15 sets, daily range): BP systolic 116–138; BP diastolic 64–86; PULSE 52–65; RESP 12–20; TEMP 36.2–37.2; O2SAT 92–98
--- NOTE | 2022-08-22 | ECHO_ITS ---
Patient Info Name: Brain Cortez Age: 57 years : 1965 Gender: Male Ht: 71 in Wt: 249 lbs BSA: 2.42 m2 HR: 54 bpm BP: 116 / 64 mmHg Heart Rhythm: Sinus Rhythm Technical Quality: Fair Exam Date: 08/22/2022 8:09 AM Exam Location: [facility] Pulmonary Patient Status: Outpatient Admit Date: 08/21/2022 Staff Ordering Physician: Murray Newton MD Portable Machine Sander: Lisset Arias RDCS Attending Provider: Murray Newton MD Exam Type: CA echo doppler color flow Study Info Indications R07.9 - Chest pain, unspecified Complete two-dimensional, color flow and Doppler transthoracic echocardiogram is performed. Summary 1. Complete two-dimensional, color flow and Doppler transthoracic echocardiogram is performed. 2. Left ventricular chamber dimension is normal. 3. Left ventricular systolic function is normal, estimated at 55-60%. 4. No ischemic wall motion abnormalities were identified. 5. No valvular dysfunction. Left Ventricle Left ventricular chamber dimension is normal. Left ventricular systolic function is normal, estimated at 55-60%. The left ventricular diastolic function is normal. No ischemic wall motion abnormalities were identified. Right Ventricle Right ventricular chamber dimension is normal. Left Atria Left atrial chamber dimension is normal. Right Atria Right atrial chamber dimension is normal. Aortic Valve The aortic valve is normal. Pulmonic Valve The pulmonic valve is not well visualized. Mitral Valve The mitral valve has normal leaflets. Tricuspid Valve The tricuspid valve leaflets are normal. Pericardium/Pleural The pericardium appears normal. Aorta The aortic root size at the sinus of Valsalva is normal. Left Ventricular Outflow Tract Name Value Normal LVOT 2D LVOT Diameter 2.4 cm LVOT Doppler LVOT Peak Gradient 3 mmHg LVOT Mean Gradient 2 mmHg LVOT VTI 20 cm LVOT VTI/AV VTI Ratio 0.8 LVOT Stroke Volume 90 ml LVOT CO 5.3 l/min LVOT CI 2.2 l/min/m2 Pulmonic Valve Name Value Normal RVOT Doppler RVOT Peak Gradient 2 mmHg PV Doppler PV Peak Gradient 5 mmHg Mitral Valve Name Value Normal MV Doppler MV Decel Tillman 397 cm/s2 MV PHT 62 ms MV Area (P
[2022-08-22] MEDS: ONDANSETRON INJ 4 MG/2 ML VIAL IV PUSH (00:19)
[2022-08-22 04:44] LABS: Basophils Absolute Auto 0.1 K/mm3 (0.0-0.1); Basophils Percent Auto 0.8 % (0.2-1.2); Eosinophils Absolute Auto 0.2 K/mm3 (0-0.3); Eosinophils Percent Auto 3.3 % (0-4.4); Hematocrit 38.4 % (42.0-52.0); Hemoglobin 12.7 g/dL (14.0-18.0); Immature Granulocyte Absolute 0.02 K/mm3 (0.00-0.031); Immature Granulocyte Percent A 0.3 % (0-0.5); Lymphocytes Absolute Auto 1.61 K/mm3 (0.9-3.2); Lymphocytes Percent Auto 24.9 % (18.3-44.2); Mean Corpuscular HGB Conc 33.1 g/dl (32-36); Mean Corpuscular Volume 90.6 fl (80-100); Mean Platelet Volume 10.5 fl (7.4-10.4); Monocytes Absolute Auto 0.5 K/mm3 (0.1-0.6); Neutrophils Absolute Auto 4.1 K/mm3 (1.3-6.7); Neutrophils Percent Auto 62.7 % (45.5-73.1); Platelet Count Result 183 k/mm3 (150-375); Red Blood Count 4.24 M/mm3 (4.6-6.20); Red Cell Distribution Width 13.6 % (11.5-14.5); White Blood Count 6.5 K/mm3 (4.5-10.0)
[2022-08-22 04:53] LABS: Alanine Aminotransferase 29 U/L (6-50); Albumin Level 3.9 g/dL (3.5-5.1); Alkaline Phosphatase 69 U/L (38-126); Anion Gap 7 mmol/L (8-16); Aspartate Amino Transferase 28 U/L (17-59); Bilirubin,Total 0.7 mg/dL (0.2-1.3); Blood Urea Nitrogen 18 mg/dL (9-20); Calcium 8.9 mg/dL (8.4-10.2); Carbon Dioxide 27 mmol/L (22-30); Chloride 106 mmol/L (98-107); Estimated CRCL calculation 91 ml/min; Estimated Glomerular Filt Rate > 60; Glucose 120 mg/dL (65-110); Lipase 40 U/L (23-300); Potassium 3.9 mmol/L (3.4-5.0); Sodium 140 mmol/L (137-145)
--- NOTE | 2022-08-22 08:23 | PM.CNCAR ---
Assessment and Plan Assessment and plan (1) Chest pain: Code(s): R07.9 - Chest pain, unspecified Status: Acute Plan this is a 57-year-old man with dyslipidemia and family history of coronary disease in his mother and 1 brother. He has been having episodes of concerning chest pain for about a week now. He has had 2 emergency room visits with negative findings. His very concerned about the possibility of ischemic heart disease. He has no evidence of acute coronary syndrome by ECGs and troponin levels. To evaluate this an angiogram will be performed this morning. It is the patient's preference to proceed in this fashion rather than noninvasive approach. the procedure of coronary angiography was explained in detail as well as the risks. He wishes to proceed today. Dino Dunn MD [facility] History of Present Illness History of Present Illness Consult date/time: 08/22/22 08:23 Consult reason: chest pain Reason For Visit: chest pain Narrative: This is a 57-year-old man I am seeing this morning at the request of the hospitalist because of chest pain. The patient is not known to have any cardiac problems prior to this. 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 He describes episodes of relatively severe sharp left precordial to central chest discomfort this seemed to come in nonexertional fashion. He does feel short of breath when this occurs and does feel nauseated at times when this occurs. When he is not having these symptoms he does not notice any exertional symptoms he denies any symptoms of palpitations orthopnea PND edema. He has never had a syncopal episode. He has visited the emergency room and a couple of different hospitals over the last week with the symptoms and has had negative ER evaluations. He came to this hospital yesterday his bringing him to the emergency room with similar symptoms. His electrocardiogram was normal and his troponin levels have remained normal. The patient denies any history of hypertension or diabetes he does take atorvastatin for dyslipidemia. He has had previous cholecystectomy. 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 The patient has plans to travel to [place] this weekend for a few more all on Thursday. Review of Systems Constitutional: Constitutional: Reports no additional constitutional complaints Eyes: Eyes: Reports no additional eye complaints ENT: Reports system reviewed and no additional complaints, except as documented Cardiovascular: Cardiovascular: Reports as per HPI Respiratory: Respiratory: Reports as per HPI Gastrointestinal: Gastrointestinal: Reports no additional gastrointestinal complaints Musculoskeletal: Musculoskeletal: Reports no additional musculoskeletal complaints Integumentary/Breasts: Skin/Breast: Reports system reviewed and no additional complaints, except as docu Neurologic: Reports system reviewed and no additional complaints, except as documented Endocrine: Endocrine: Reports no additional endocrine complaints Hematologic/Lymphatic: Hematologic/Lymphatic: Reports no additional hematologic/lymphatic complaints Allergic/Immunologic: Allergic/Immunologic: Reports no additional allergic/immunologic complaints [facility] Past Medical History Medical History BMI 33.0-33.9,adult BMI 36.0-36.9,adult BMI 37.0-37.9, adult COVID-19 Diabetes mellitus A1C on 02/18/20 was 5.9 Gastroesophageal reflux disease Herpes zoster Hypercholesterolemia Morbid (severe) obesity due to excess calories Obesity Surgical History Surgical History History of cholecystectomy 1992 Hx of rotator cuff surgery Right 2009-Dr. Lei Family History Family History (Reviewed
--- NOTE | 2022-08-22 08:32 | WPDMODSED ---
Moderate Sedation Note-Pt Data Patient Data Diagnosis: Intermittent chest pain Present Complaint: Intermittent retrosternal and right scapular chest pain Procedure to be performed/Plan: Coronary angiography Allergies Allergy/AdvReac Type Severity Reaction Status Date / Time morphine Allergy Severe NAUSEA, Verified 08/20/22 09:19 VOMITING Penicillins AdvReac Unknown Unknown Verified 08/20/22 09:19 Home Medications Medication Instructions Recorded Confirmed Type atorvastatin 20 mg tablet (Lipitor) 20 mg PO DAILY #90 tabs 04/14/22 08/21/22 Rx citalopram 40 mg tablet (Celexa) 40 mg PO DAILY #90 tabs 08/20/22 08/21/22 Rx trazodone 50 mg tablet 50 mg PO QHS PRN sleep #60 tabs 08/20/22 08/21/22 Rx famotidine 20 mg tablet (Pepcid) 20 mg PO DAILY 08/21/22 08/21/22 History Current Medications: Active Medications Azithromycin (Zithromax) 500 mg in 250 mls @ 250 mls/hr IVPB Q24H ELENA Last Infusion: 08/22/22 00:45 Dose: Infused Doxycycline Hyclate (Vibramycin 100 Mg/Ns 100 Ml) 100 mg in 100 mls @ 100 mls/hr IVPB Q24H ELENA Last Infusion: 08/22/22 00:45 Dose: Infused Ondansetron HCl (Ondansetron Inj 4 Mg/2 Ml Vial) 4 mg IV PUSH Q4H PRN PRN Reason: Nausea And Vomiting Last Admin: 08/22/22 00:19 Dose: 4 mg Perflutren Lipid Microsphere (Perflutren Lipid Microspheres 1.5 Ml Vial Diluted To 10 Ml Total Volume) 0 ml IV PUSH ONCE PRN; Protocol PRN Reason: adequate visualization Stop: 08/23/22 20:33 Sedation/Anesthesia: No previous sedation/anesthesia problems (including family history). [facility] Past Medical History Medical History BMI 33.0-33.9,adult BMI 36.0-36.9,adult BMI 37.0-37.9, adult COVID-19 Diabetes mellitus A1C on 02/18/20 was 5.9 Gastroesophageal reflux disease Herpes zoster Hypercholesterolemia Morbid (severe) obesity due to excess calories Obesity Surgical History Surgical History History of cholecystectomy 1992 Hx of rotator cuff surgery Right 2010-Dr. 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1 C L Pulse Rate 68 67 68 Respiratory Rate 18 18 Blood Pressure 142/76 H Pulse Oximetry 98 99 Oxygen Delivery Room Air 08/21/22 16:05 08/21/22 16:17 08/21/22 17:18 Temperature Pulse Rate 69 72 69 Respiratory Rate 20 16 17 Blood Pressure 160/95 H 150/85 H 158/79 H Pulse Oximetry 98 Oxygen Delivery 08/21/22 19:10 08/21/22 19:17 08/21/22 20:32 Temperature Pulse Rate 65 63 Respiratory Rate 13 18 Blood Pressure 134/79 134/88 Pulse Oximetry 98 Oxygen Delivery Room Air 08/21/22 20:47 09
--- NOTE | 2022-08-22 09:15 | P.PCNCC_ITS ---
Cardiac Cath Procedure Note Date of procedure:: 08/22/22 Performing physician:: Dino Dunn MD Indication:: Chest pain Brief clinical history:: this is a 57-year-old man without history of coronary disease history of dyslipidemia and family history of CAD in mother and brother. He has been having episodes of chest pain that have resulted in several emergency room visits recently. Electrocardiogram and biomarkers are unremarkable. To rule out obstructive coronary disease an angiogram has been recommended Procedure Procedure performed:: left ventriculogram coronary angiogram Angio-Seal to right femoral artery Sedation/Medication given:: fentanyl 50 mg Versed 2 mg case start time 8:54 a.m. case end time 9:12 a.m. sedation provided by Janel Hathaway RN, trained observer Access site:: right femoral artery Estimated blood loss:: less than 20 cc Procedure note:: patient brought to the cardiac catheterization lab postabsorptive state where the right femoral triangle was prepared and draped in the normal fashion. Anesthesia was provided with 1% lidocaine infiltrated locally. Using the modified Seldinger technique a 5 Portuguese sheath placed into the right femoral artery. Following this left heart catheterization was carried out. A 5 Portuguese angled pigtail catheter was used to perform left ventriculography in the SWAIN projection and measure left-sided hemodynamics. Following this standard 5 Portuguese FL4 catheter was used to engage and inject the left coronary artery and then a 5 Portuguese JR4 catheter was used to engage and inject the right coronary artery. The cineangiograms were then reviewed and the case was terminated an angiogram was done of the femoral artery through the sheath after which a 6 Fr ench Angio-Seal device was deployed to provide hemostasis. The result was good he left the cardiac cath lab technologist no evidence of any groin hematoma and there were no apparent procedural complications. Findings:: Hemodynamics: Central aortic pressure is 126 over 76 left ventricle 126/0 end-diastolic pressure 10 there is no gradient on pullback across the aortic valve. Left ventricle: The LV is of normal size all segments contract appropriately the global ejection fraction visually estimates at 55%. The left main coronary artery is widely patent the left anterior descending is a large caliber artery extending down to around the apex and providing some flow to the inferior wall as well. The LAD has minimal luminal irregularities in the proximal segment otherwise there is no evidence of significant atherosclerosis. Circumflex is a moderate caliber artery giving rise to the marginal branches. The circumflex system is smooth and angiographically normal. The right coronary artery is large in caliber and dominant to the posterior circulation the right coronary artery is smooth and angiographically normal in appearance. Conclusion:: 1. Right coronary dominant circulation, minimal plaquing in the proximal LAD otherwise no significant coronary artery disease 2. preserved left ventricular systolic function 3. Angio-Seal to right femoral artery 4. based on these data patient is chest pain syndrome appears to be noncardiac Dino Dunn MD FACC
--- NOTE | 2022-08-22 10:48 | PC.NURSE ---
Patient returned to room 202 with hospital staff. Right groin assessed, dry and intact. No hematoma/bruising/bleeding noted. Pedal pulse +2. No complaints of chest pain or shortness of breath at this time. Will continue to monitor closely.
[2022-08-22] MEDS: SODIUM CHLORIDE 0.9% IV 1,000 ML 125 ML IV CONT (11:10)
--- NOTE | 2022-08-22 13:41 | PM.DS ---
DS: Admitting Diagnosis Discharge Date 08/22/2022 Admitting Diagnosis Chest pain DS: Discharge Diagnosis Discharge Diagnosis (1) Diabetes mellitus: Qualifiers: Diabetes mellitus type: type 2 Diabetes mellitus long-term insulin use: without long-term use Diabetes mellitus complication status: with hyperglycemia Qualified Code(s): E11.65 - Type 2 diabetes mellitus with hyperglycemia Code(s): E11.9 - Type 2 diabetes mellitus without complications Status: Acute (2) Mixed hyperlipidemia: Code(s): E78.2 - Mixed hyperlipidemia Status: Acute (3) Gastroesophageal reflux disease: Qualifiers: Esophagitis presence: esophagitis presence not specified Qualified Code(s): K21.9 - Gastro-esophageal reflux disease without esophagitis Code(s): K21.9 - Gastro-esophageal reflux disease without esophagitis Status: Acute (4) Chest pain: Code(s): R07.9 - Chest pain, unspecified Status: Acute (5) Ground glass opacity present on imaging of lung: Code(s): R91.8 - Other nonspecific abnormal finding of lung field Status: Acute DS: Summary Hospital Course Hospital Course: # chest pain/sob: on and off since past week. went to [facility] ER. cardiac workup all negative. Presented again to our ER 08/21/2022. Ekg with no acute st t changes. trops are negaitve. cta negative for PE but does show ground-glass opacities. Possible ifnectoin though Wbc count normal. BNP was normal and started on empiric doxycycline. Allergic penicillin. trops x 3 negative two days in a row. some social stress factor in play. famlily hx of cad. He is a non smoker, non drinker, no drugs. cardiology consulted . echo reviewed which came no valvular abnormality with normal ejection fraction. Discussed cardiology is underwent cardiac catheterization which showed clean coronaries. Chest pain shortness of breath noncardiac in noticing. Continue with doxycycline discharge 5 days course # GGO: atypical infection possibe. does have some cough. Ordered oxygen was to be continued BNP normal. # HLP: Lipid profile 186/37/102/221 suggestive of hypertriglyceridemia # GERD: on famotidine. # DVT proph: lovenox # Code statsu: Full code Time Spent with Patient Time attestation: Total time spent providing and/or coordinating discharge services: Exam Narrative: GENERAL: The patient is well developed, not in acute distress HEENT: Nonicteric sclerae, PERRLA, EOMI. Oropharynx clear. Moist mucous membranes. Conjunctivae appear well perfused. CHEST: Chest wall is nontender. HEART: Regular rate and rhythm without murmur, rubs, or gallops LUNGS: Clear to auscultation bilaterally. no respiratory distress ABDOMEN: Soft, positive bowel sounds, non-tender, no organomegaly. SKIN: No rash, no excessive bruising, petechiae, or purpura. NEUROLOGIC: Cranial nerves II-XII intact, alert and oriented x 3, no gross motor deficits EXTREMITIES: no edema, cyanosis or clubbing DS: Data Data Completed and Pending Completed studies during hospitalization: Exam Type: ? ? CA echo doppler color flow Study Info Indications ? ? R07.9 - Chest pain,? unspecified Complete two-dimensional, color flow and Doppler transthoracic echocardiogram is performed. Account #: ? ? [id number] Summary ? 1. Complete two-dimensional, color flow and Doppler transthoracic echocardiogram is performed. ? 2. Left ventricular chamber dimension is normal. ? 3. Left ventricular systolic function is normal, estimated at 55-60%. ? 4. No ischemic wall motion abnormalities were identified. ? 5. No valvular dysfunction. Left Ventricle ? Left ventricular chamber dimension is normal. ? Left ventricular systolic function is normal, estimated at 55-60%. ? The left ventricular diastolic function is normal. ? No ischemic wall motion abnormalities were identified. Right Ventricle ? Right ventricular chamber dimension is normal. Left Atria ? Left
== END 2022-08-22 15:20 | disposition home or self-care (01) ==
LOC: ANHED 16:07 → ANHIMU 21:42
PROVIDERS: Specialist; Admitting Provider Internal Medicine; Emergency Provider Emergency Medicine; PCP Family Medicine; Visit Provider Internal Medicine
PROC: 4A023N7 Measurement of Cardiac Sampling and Pressure, Left Heart, Percutaneous Approach (ICD-10-PCS; CPT 93452; principal; 2022-08-22 08:30)
DX: E11.65 Type 2 diabetes mellitus with hyperglycemia (principal); E78.2 Mixed hyperlipidemia; K21.9 Gastro-esophageal reflux disease without esophagitis; R07.9 Chest pain, unspecified; R91.8 Other nonspecific abnormal finding of lung field; E66.01 Morbid (severe) obesity due to excess calories; Z68.34 Body mass index [BMI] 34.0-34.9, adult; E78.00 Pure hypercholesterolemia, unspecified; I10 Essential (primary) hypertension; I51.7 Cardiomegaly; R59.1 Generalized enlarged lymph nodes; K76.0 Fatty (change of) liver, not elsewhere classified; Z90.49 Acquired absence of other specified parts of digestive tract; Z20.822 Contact with and (suspected) exposure to COVID-19; K57.30 Diverticulosis of large intestine without perforation or abscess without bleeding; Z79.1 Long term (current) use of non-steroidal anti-inflammatories (NSAID); Z86.16 Personal history of COVID-19; Z79.899 Other long term (current) drug therapy; Z82.49 Family history of ischemic heart disease and other diseases of the circulatory system
CPT/HCPCS: 36415; 71045; 71275; 80053; 80061; 83690; 83735; 83880; 84484; 85025; 85610; 85730; 93005; 93306; 93458; 96365; 96368; 96374; 96375; 99285; C1760; C1887; C1894; C9803; G0269; G0378; J0456; J1644; J2250; J2405; J3010; J7030; J7040; Q9967; U0003; U0005

== ENCOUNTER → 2022-10-10 10:44 | Outpatient (CLI) | payer BC, SELFPAY ==
--- NOTE | ~2022-10-10 | US_ITS ---
EXAMINATION: US soft tissue LE LT DATE: 10/10/2022 11:09 INDICATION: Left lower limb mass. TECHNIQUE: Multiple grayscale ultrasound images of the left lower limb were obtained. COMPARISON: Left knee radiographs 08/11/2022 FINDINGS: There is no abnormal mass in the patient's area of concern. IMPRESSION: 1. No abnormal mass in the patient's area of concern. Reviewed, dictated and finalized at location A. DEALER
== END ==
PROVIDERS: PCP Family Medicine; Visit Provider Family Medicine
DX: R22.42 Localized swelling, mass and lump, left lower limb (principal)
CPT/HCPCS: 76882

== ENCOUNTER 2022-11-06 11:08 | Emergency (ER) | payer BC, SELFPAY ==
[2022-11-06 11:18] VITALS: BP 138/88; PULSE 83; RESP 16; TEMP 35.9; O2SAT 97
--- NOTE | 2022-11-06 11:35 | ED.URI ---
HPI - URI/Sore Throat General Chief Complaint: Upper Respiratory Infection Stated Complaint: uri Time Seen by Provider: 11/06/22 11:35 Source: patient, RN notes reviewed and old records reviewed Mode of arrival: ambulatory Limitations: no limitations History of Present Illness HPI Narrative: 57-year-old male presents to the [facility] complaints of 4 days of sinus pressure, URI symptoms coughing. Reports facial pressure. Denies any chest pain. Reports occasional shortness of breath coughing. Related Data Home Medications Medication Instructions Recorded Confirmed famotidine 20 mg tablet (Pepcid) 20 mg PO DAILY 08/21/22 09/08/22 nabumetone 500 mg tablet mg 11/06/22 Allergies Allergy/AdvReac Type Severity Reaction Status Date / Time morphine Allergy Severe NAUSEA, Verified 11/06/22 11:11 VOMITING Penicillins AdvReac Unknown Unknown Verified 11/06/22 11:11 Review of Systems Review of Systems: All systems reviewed & are unremarkable except as noted in HPI and below Constitutional: Constitutional: Reports no additional constitutional complaints Eyes: Eyes: Reports no additional eye complaints ENT: Reports as per HPI and Reports nasal congestion Cardiovascular: Cardiovascular: Reports no additional cardiovascular complaints, Denies chest pain and Denies dyspnea Respiratory: Respiratory: Reports as per HPI, Denies chest congestion, Reports cough and Denies dyspnea Gastrointestinal: Gastrointestinal: Reports no additional gastrointestinal complaints, Denies abdominal pain, Denies nausea and Denies vomiting Musculoskeletal: Musculoskeletal: Reports no additional musculoskeletal complaints Integumentary/Breasts: Skin/Breast: Reports system reviewed and no additional complaints, except as docu Neurologic: Reports system reviewed and no additional complaints, except as documented Psychiatric: Psychiatric: Reports no additional psychiatric complaints Allergic/Immunologic: Allergic/Immunologic: Reports no additional allergic/immunologic complaints [facility] Past Medical History Medical History BMI 33.0-33.9,adult BMI 36.0-36.9,adult BMI 37.0-37.9, adult Body mass index (BMI) of 40.1 to 44.9 in adult COVID-19 Diabetes mellitus A1C on 02/18/20 was 5.9 Gastroesophageal reflux disease Herpes zoster Hypercholesterolemia Morbid (severe) obesity due to excess calories Obesity Surgical History Surgical History H/O cardiac catheterization History of cholecystectomy 1992 Hx of rotator cuff surgery Right 2010-Dr. 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 There is no relevant family history pertinent to the patient complaint. Exam Const: General: cooperative, healthy appearing, comfortable, no acute distress, well developed, alert and well nourished Nutritional Appearance: well nourished and obese Orientation/consciousness: patient oriented x3 Limitations: no limitations HENMT: Head: normal to inspection Ears: hearing grossly normal bilaterally
== END 2022-11-06 11:58 | disposition home or self-care (01) ==
PROVIDERS: Emergency Provider Nurse Practitioner; PCP Family Medicine
DX: J32.9 Chronic sinusitis, unspecified (principal); J40 Bronchitis, not specified as acute or chronic; E11.9 Type 2 diabetes mellitus without complications; K21.9 Gastro-esophageal reflux disease without esophagitis; E78.00 Pure hypercholesterolemia, unspecified; E66.01 Morbid (severe) obesity due to excess calories; Z68.37 Body mass index [BMI] 37.0-37.9, adult; Z86.16 Personal history of COVID-19
CPT/HCPCS: 99213; G0463

== ENCOUNTER 2023-06-21 22:34 | Emergency (ER) | payer BC, SELFPAY ==
[2023-06-21 22:37] VITALS: BP 143/87; PULSE 92; RESP 16; TEMP 37; O2SAT 96
[2023-06-21 22:50] LABS: Basophils Absolute Auto 0.1 K/mm3 (0.0-0.1); Basophils Percent Auto 0.5 % (0.2-1.2); Eosinophils Absolute Auto 0.1 K/mm3 (0-0.3); Eosinophils Percent Auto 0.6 % (0-4.4); Immature Granulocyte Absolute 0.05 K/mm3 (0.00-0.031); Immature Granulocyte Percent A 0.5 % (0-0.5); Lymphocytes Absolute Auto 1.52 K/mm3 (0.9-3.2); Lymphocytes Percent Auto 15.5 % (18.3-44.2); Mean Corpuscular HGB Conc 33.3 g/dl (32-36); Mean Corpuscular Hemoglobin 29.7 pg (26-34); Mean Corpuscular Volume 89.2 fl (80-100); Mean Platelet Volume 10.1 fl (7.4-10.4); Monocytes Absolute Auto 0.6 K/mm3 (0.1-0.6); Monocytes Percent Auto 6.2 % (2.6-8.5); Neutrophils Absolute Auto 7.5 K/mm3 (1.3-6.7); Neutrophils Percent Auto 76.7 % (45.5-73.1); Platelet Count Result 208 k/mm3 (150-375); Red Blood Count 4.71 M/mm3 (4.6-6.20); Red Cell Distribution Width 12.8 % (11.5-14.5); White Blood Count 9.8 K/mm3 (4.5-10.0)
[2023-06-21 23:10] LABS: Alanine Aminotransferase 36 U/L (6-50); Albumin Level 4.8 g/dL (3.5-5.1); Alkaline Phosphatase 61 U/L (38-126); Anion Gap 13 mmol/L (8-16); Aspartate Amino Transferase 41 U/L (17-59); Bilirubin,Total 0.9 mg/dL (0.2-1.3); Blood Urea Nitrogen 25 mg/dL (9-20); Calcium 9.8 mg/dL (8.4-10.2); Carbon Dioxide 26 mmol/L (22-30); Chloride 102 mmol/L (98-107); Estimated CRCL calculation 104 ml/min; Estimated Glomerular Filt Rate > 60; Glucose 139 mg/dL (65-110); Potassium 4.2 mmol/L (3.4-5.0); Sodium 141 mmol/L (137-145)
[2023-06-22] VITALS (19 sets, daily range): BP systolic 133–177; BP diastolic 76–143; PULSE 59–76; RESP 11–24; O2SAT 90–99
[2023-06-22] MEDS: LACTATED RINGERS 2,000 ML 999 ML IV CONT (01:39)
--- NOTE | 2023-06-22 02:01 | ED.GENADULT ---
HPI - General Adult General Chief complaint: Unspecified Stated complaint: i think i may have gotten heat stroke /cramping Time Seen by Provider: 06/22/23 00:44 History of Present Illness HPI narrative: This is a 58-year-old male with past history of hyperlipidemia, who presents emergency department complaining of diffuse cramping and lightheadedness. The patient states he had been outside working today in the heat, when he developed cramping pains of the bilateral hands, bilateral feet and medial thighs with pain reaching a 6/10. He states despite drinking plenty of fluids the cramps persisted. He experienced a short period of lightheadedness that resolved spontaneously and has not recurred. He is concerned for electrolyte imbalance. Related Data Allergies Allergy/AdvReac Type Severity Reaction Status Date / Time morphine Allergy Severe NAUSEA, Verified 06/21/23 22:35 VOMITING Penicillins Allergy Intermediate Unknown Verified 06/21/23 22:35 Review of Systems Review of Systems: CONSTITUTIONAL: Denies fever, chills, or sweats. CARDIOVASCULAR: Denies chest pain, palpitations, or edema. RESPIRATORY: Denies cough or dyspnea. GASTROINTESTINAL: Denies abdominal pain, nausea, vomiting, or diarrhea. GENITOURINARY: Denies dysuria or hematuria. SKIN: Denies rash or itching. MUSCULOSKELETAL: Muscle spasms of the bilateral hands, bilateral feet and medial thighs denies back pain, or joint pain NEUROLOGIC: Intermittent lightheadedness?resolved denies headache, numbness, or weakness. PSYCHIATRIC: Denies anxiety or depression. [facility] Past Medical History Medical History BMI 33.0-33.9,adult BMI 36.0-36.9,adult BMI 37.0-37.9, adult Body mass index (BMI) of 40.1 to 44.9 in adult COVID-19 Diabetes mellitus A1C on 02/18/20 was 5.9 Gastroesophageal reflux disease Herpes zoster Hypercholesterolemia Morbid (severe) obesity due to excess calories Obesity Surgical History Surgical History H/O cardiac catheterization History of cholecystectomy 1992 Hx of rotator cuff surgery Right 2009-Dr. Lei Family History Family History Father Hypertension Alzheimer disease Grandparent Family history of lung cancer Mother Family history of coronary artery disease Dementia Hyperlipidemia Stented coronary artery Sibling COVID-19 Other Family history of heart disease in male family member before age 55 Social History Social History Smoking status: Never smoker Second hand tobacco smoke exposure: No Alcohol intake: never Substance use: never Substance use type: does not use Lack of Transportation: No Lack of Food: Never True Current Housing: I Have Housing Concerned About Future Housing: No Difficulty Paying Gas/Electric Bills: No Difficulty Paying for Meds: No Currently Unemployed: No Education: High School Diploma/GED Difficulty w/ Childcare or Family Care: No Living arrangements: with family Occupation/Education: occupation 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 HEAD: Normocephalic, atraumatic. EYES: PERRLA and EOMI. ENT: Nares clear, no rhinorrhea or epistaxis. Mucous membranes moist. Oropharynx without tonsillar hypertrophy exudate or other lesions. CHEST: Clear to auscultation. No respiratory distress. No wheezes rales or rhonchi HEART: Regular rate and rhythm. No murmur heard. Normal peripheral pulses. ABDOMEN: Soft, nontender, nondistended, normal active bowel sounds. EXTREMITIES: Normal range of motion. No edema. SKIN: Warm, dry, no rash. NEURO
--- NOTE | 2023-07-06 10:01 | PC.NURSE ---
LATE ENTRY This note is being entered to document information to the patient's record. The following information was omitted on [06/22/23], by [Kristel Bedolla RN]. LR stopped at 0315am 2000cc bolus
--- NOTE | 2023-07-07 07:04 | PC.NURSE ---
LR stopped on 06/22/23 at 0340.0
== END 2023-06-22 03:01 | disposition home or self-care (01) ==
PROVIDERS: Emergency Provider Preventive Medicine Aerospace Medicine; PCP Family Medicine
DX: T67.5XXA Heat exhaustion, unspecified, initial encounter (principal); R42 Dizziness and giddiness; M62.838 Other muscle spasm; E78.00 Pure hypercholesterolemia, unspecified; E11.9 Type 2 diabetes mellitus without complications; K21.9 Gastro-esophageal reflux disease without esophagitis; E66.01 Morbid (severe) obesity due to excess calories; Z68.36 Body mass index [BMI] 36.0-36.9, adult; Z86.16 Personal history of COVID-19; Z90.49 Acquired absence of other specified parts of digestive tract; X30.XXXA Exposure to excessive natural heat, initial encounter
CPT/HCPCS: 36415; 80053; 83735; 85025; 96360; 99283; J7120

== ENCOUNTER → 2023-11-13 09:34 | Outpatient (CLI) | payer BC, SELFPAY ==
--- NOTE | ~2023-11-13 | XR_ITS ---
EXAMINATION: XR chest 2V DATE: 11/13/2023 09:44 INDICATION: Dyspnea, unspecified TECHNIQUE: Frontal and lateral views of the chest are obtained COMPARISON: 08/21/2022 FINDINGS: The lungs are free of acute opacities. No pleural effusion or pneumothorax. The cardiomedia stinal silhouette is normal. There is mild thoracic spondylosis. IMPRESSION: 1. No acute cardiopulmonary abnormality. Reviewed, dictated and finalized at location B. DATABASE ADMINISTRATOR
== END ==
PROVIDERS: PCP Family Medicine; Visit Provider Nurse Practitioner Family
DX: R06.00 Dyspnea, unspecified (principal); R05.8 Other specified cough
CPT/HCPCS: 71046

== ENCOUNTER 2023-11-14 09:16 | Emergency (ER) | payer BC, SELFPAY ==
--- NOTE | 2023-11-14 09:35 | ED.URI ---
HPI - URI/Sore Throat General Chief Complaint: Upper Respiratory Infection Stated Complaint: sinus drainage,cough,headache Time Seen by Provider: 11/14/23 10:05 Source: patient and RN notes reviewed Mode of arrival: ambulatory Limitations: no limitations History of Present Illness HPI Narrative: 58-year-old male presents concern for 5 day history of cough, chest congestion, headache, sinus drainage. He reports he called his doctor and they sent of an order in for a chest x-ray which he had done yesterday after that they told him to take cough medicine. He denies known sick contacts. He reports he last used his inhaler that his doctor prescribed last night. MD elicited complaint: cough Related Data Allergies Allergy/AdvReac Type Severity Reaction Status Date / Time morphine Allergy Severe NAUSEA, Verified 11/14/23 09:42 VOMITING Penicillins Allergy Intermediate Unknown Verified 11/14/23 09:42 Review of Systems Review of Systems: CONSTITUTIONAL: Reports malaise EYES: Denies visual changes, redness, or discharge. ENT: Reports rhinorrhea. Denies congestion, sinus pain, otalgia and sore throat. CARDIOVASCULAR: Denies chest pain, palpitations, or edema. RESPIRATORY: Reports cough, chest congestion. Denies dyspnea. GASTROINTESTINAL: Denies abdominal pain, nausea, vomiting, diarrhea SKIN: Denies rash or itching. MUSCULOSKELETAL: Denies myalgia. NEUROLOGIC: Reports headache. All systems reviewed & are unremarkable except as noted in HPI and below PMFSH Past Medical History Medical History BMI 33.0-33.9,adult BMI 36.0-36.9,adult BMI 37.0-37.9, adult Body mass index (BMI) of 40.1 to 44.9 in adult COVID-19 Diabetes mellitus A1C on 02/18/20 was 5.9 Gastroesophageal reflux disease Herpes zoster Hypercholesterolemia Morbid (severe) obesity due to excess calories Obesity Surgical History Surgical History H/O cardiac catheterization History of cholecystectomy 1992 Hx of rotator cuff surgery Right 2009-Dr. Lei Family History Family History Father Hypertension Alzheimer disease Grandparent Family history of lung cancer Mother Family history of coronary artery disease Dementia Hyperlipidemia Stented coronary artery Sibling COVID-19 Other Family history of heart disease in male family member before age 55 Social History Social History Smoking status: Never smoker Second hand tobacco smoke exposure: No Alcohol intake: never Substance use: never Substance use type: does not use Lack of Transportation: No Lack of Food: Never True Current Housing: I Have Housing Concerned About Future Housing: No Difficulty Paying Gas/Electric Bills: No Difficulty Paying for Meds: No Currently Unemployed: No Education: High School Diploma/GED Difficulty w/ Childcare or Family Care: No Living arrangements: with family Occupation/Education: occupation 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 There is no relevant family history pertinent to the presenting complaint Exam Narrative: GENERAL: Well-appearing, well-nourished, and in no acute distress. HEAD: Normocephalic EYES: PERRLA, conjunctivae clear ENT: Nares clear. Mucous membranes moist. TM pearly johansen with dull light reflex bilaterally; no tragal tenderness. Oropharynx not erythematous without lesions. Tonsils not enlarged and without exudate, no drooling, no hoarseness, no trismus, uvula midline. NECK: Supple. No lymphadenopathy CHEST: Scattered expiratory wheeze, otherwise clear to
[2023-11-14 09:37] VITALS: BP 115/85; PULSE 79; RESP 16; TEMP 38.3; O2SAT 96
== END 2023-11-14 10:23 | disposition home or self-care (01) ==
PROVIDERS: Emergency Provider Nurse Practitioner; PCP Family Medicine
DX: J40 Bronchitis, not specified as acute or chronic (principal); E11.9 Type 2 diabetes mellitus without complications; Z20.822 Contact with and (suspected) exposure to COVID-19
CPT/HCPCS: 87426; 87804; 99213; C9803; G0463

== ENCOUNTER 2023-11-19 18:31 | Emergency (ER) | payer BC, SELFPAY ==
--- NOTE | ~2023-11-19 | XR_ITS ---
EXAMINATION: XR chest 2V Exam Date/Time: 11/19/2023 18:40 TRANSFORMER TESTER HISTORY: COUGH/SOB X 1 WEEK HX PNEUMONIA Comparison: 11/13/2023. RESULT: Lines, tubes, and devices: Cholecystectomy clips. Lungs and pleura: Clear. Cardiomediastinal silhouette: Stable. Other: No acute osseous or upper abdominal finding. IMPRESSION: No acute cardiopulmonary process. Reviewed, dictated and finalized at location K. SFORMER TESTER
[2023-11-19 18:34] VITALS: BP 181/86; PULSE 77; RESP 20; TEMP 36.8; O2SAT 95
--- NOTE | 2023-11-19 18:37 | ED.URI ---
HPI - URI/Sore Throat General Chief Complaint: Upper Respiratory Infection Stated Complaint: hard to breathe, headache Time Seen by Provider: 11/19/23 18:52 Source: patient, RN notes reviewed and old records reviewed Mode of arrival: ambulatory Limitations: no limitations History of Present Illness HPI Narrative: 58-year-old male presents to the [facility] with complaints of right posterior mid back pain, shortness of breath and headache for worse for 2 days. Was seen on the diagnosed with bronchitis, given cough medicine which is not helping as well as steroid. Patient states symptoms just keeps getting worse. Had had an x-ray on the 13 of November which showed no acute findings, had called and talked to primary care provider. Patient states with the treatment he has received he just feels like he is getting worse. Onset (ago): day(s) (2) Treatments prior to arrival: cold medicine and other (Steroids, inhaler, cough medicine) Related Data Allergies Allergy/AdvReac Type Severity Reaction Status Date / Time morphine Allergy Severe NAUSEA, Verified 11/14/23 09:42 VOMITING Penicillins Allergy Intermediate Unknown Verified 11/14/23 09:42 Review of Systems Review of Systems: All systems reviewed & are unremarkable except as noted in HPI and below Constitutional: Constitutional: Reports no additional constitutional complaints Eyes: Eyes: Reports no additional eye complaints ENT: Reports system reviewed and no additional complaints, except as documented Cardiovascular: Cardiovascular: Reports no additional cardiovascular complaints, Denies chest pain and Denies dyspnea Respiratory: Respiratory: Reports as per HPI, Reports chest congestion, Reports cough and Reports dyspnea Gastrointestinal: Gastrointestinal: Reports no additional gastrointestinal complaints, Denies abdominal pain, Denies nausea and Denies vomiting Musculoskeletal: Musculoskeletal: Reports as per HPI and Reports back pain (Right) Integumentary/Breasts: Skin/Breast: Reports system reviewed and no additional complaints, except as docu Neurologic: Reports system reviewed and no additional complaints, except as documented Psychiatric: Psychiatric: Reports no additional psychiatric complaints Allergic/Immunologic: Allergic/Immunologic: Reports no additional allergic/immunologic complaints PMFSH Past Medical History Medical History BMI 33.0-33.9,adult BMI 36.0-36.9,adult BMI 37.0-37.9, adult Body mass index (BMI) of 40.1 to 44.9 in adult COVID-19 Diabetes mellitus A1C on 02/18/20 was 5.9 Gastroesophageal reflux disease Herpes zoster Hypercholesterolemia Morbid (severe) obesity due to excess calories Obesity Surgical History Surgical History H/O cardiac catheterization History of cholecystectomy 1992 Hx of rotator cuff surgery Right 2010-Dr. Lei Family History Family History Father Hypertension Alzheimer disease Grandparent Family history of lung cancer Mother Family history of coronary artery disease Dementia Hyperlipidemia Stented coronary artery Sibling COVID-19 Other Family history of heart disease in male family member before age 55 Social History Social History Smoking status: Never smoker Second hand tobacco smoke exposure: No Alcohol intake: never Substance use: never Substance use type: does not use Lack of Transportation: No Lack of Food: Never True Current Housing: I Have Housing Concerned About Future Housing: No Difficulty Paying Gas/Electric Bills: No Difficulty Paying for Meds: No Currently Unemployed: No Education: High School Diploma/GED Difficulty w/ Childcare or Family Care: No Living arrangements: with family Occupation/Education
[2023-11-19 19:44] VITALS: BP 156/89; PULSE 85; RESP 24; TEMP 37.6; O2SAT 97
== END 2023-11-19 19:44 | disposition short-term general hospital (02) ==
PROVIDERS: Emergency Provider Nurse Practitioner; PCP Family Medicine
DX: R06.00 Dyspnea, unspecified (principal)
CPT/HCPCS: 71046; 99213; G0463

== ENCOUNTER 2023-11-19 20:05 | Emergency (ER) | payer BC, SELFPAY ==
--- NOTE | ~2023-11-19 | XR_ITS ---
EXAMINATION: XR chest 2V Exam Date/Time: 11/19/2023 20:58 CORONER HISTORY: sob, cough, right sided cp [id number] Comparison: 11/19/2023. RESULT: Lines, tubes, and devices: Cholecystectomy clips. Lungs and pleura: Clear. Cardiomediastinal silhouette: Stable. Other: No acute osseous or upper abdominal finding. IMPRESSION: No acute cardiopulmonary process. Reviewed, dictated and finalized at location K. N[facility]
[2023-11-19 20:17] VITALS: BP 150/83; PULSE 79; RESP 22; TEMP 37.2; O2SAT 95
--- NOTE | 2023-11-19 20:30 | ECG_ITS ---
Measurements Intervals [place] Rate: 76 P: 8 ME: 147 QRS: -5 QRSD: 88 T: 15 QT: 362 QTc: 408 Interpretive Statements SINUS RHYTHM NORMAL ELECTROCARDIOGRAM COMPARED TO ECG 08/21/2022 15:26:17 NO SIGNIFICANT CHANGES Electronically Signed On 11-20-2023 15:01:14 FRAME EXPANDER by Dino Dunn M.D.
[2023-11-19 21:01] LABS: Basophils Percent Auto 0.4 % (0.2-1.2); Eosinophils Absolute Auto 0.1 K/mm3 (0-0.3); Eosinophils Percent Auto 0.9 % (0-4.4); Hematocrit 42.1 % (42.0-52.0); Hemoglobin 13.6 g/dL (14.0-18.0); Immature Granulocyte Absolute 0.06 K/mm3 (0.00-0.031); Immature Granulocyte Percent A 0.8 % (0-0.5); Lymphocytes Absolute Auto 1.44 K/mm3 (0.9-3.2); Mean Corpuscular HGB Conc 32.3 g/dl (32-36); Mean Corpuscular Hemoglobin 29.6 pg (26-34); Mean Corpuscular Volume 91.5 fl (80-100); Mean Platelet Volume 10.6 fl (7.4-10.4); Monocytes Absolute Auto 0.5 K/mm3 (0.1-0.6); Monocytes Percent Auto 6.1 % (2.6-8.5); Neutrophils Absolute Auto 5.5 K/mm3 (1.3-6.7); Neutrophils Percent Auto 72.8 % (45.5-73.1); Platelet Count Result 174 k/mm3 (150-375); Red Cell Distribution Width 12.4 % (11.5-14.5); White Blood Count 7.6 K/mm3 (4.5-10.0)
[2023-11-19 21:10] LABS: Potassium 3.8 mmol/L (3.4-5.0)
[2023-11-19 21:15] LABS: Alanine Aminotransferase 46 U/L (6-50); Albumin Level 4.3 g/dL (3.5-5.1); Alkaline Phosphatase 73 U/L (38-126); Anion Gap 8 mmol/L (8-16); Aspartate Amino Transferase 42 U/L (17-59); Bilirubin,Total 0.9 mg/dL (0.2-1.3); Blood Urea Nitrogen 26 mg/dL (9-20); Calcium 9.1 mg/dL (8.4-10.2); Carbon Dioxide 28 mmol/L (22-30); Chloride 103 mmol/L (98-107); Estimated CRCL calculation 102 ml/min; Estimated Glomerular Filt Rate > 60; Glucose 127 mg/dL (65-110); Sodium 139 mmol/L (137-145)
[2023-11-19 23:00] VITALS: BP 154/78; PULSE 76; RESP 24; O2SAT 92
[2023-11-19 23:26] VITALS: PULSE 72
[2023-11-19 23:27] VITALS: O2SAT 97
[2023-11-19 23:37] LABS: Influenza A QL RT-PCR Positive (Negative); Influenza B QL RT-PCR Negative (Negative); RSV RNA, RT-PCR Negative (Negative); SARS-CoV-2 RNA PCR Negative (Negative)
--- NOTE | 2023-11-20 00:25 | ED.GENADULT ---
HPI - General Adult General Chief complaint: Shortness of Breath/Dyspnea Stated complaint: dyspnea Time Seen by Provider: 11/19/23 22:42 History of Present Illness HPI narrative: 58-year-old male presenting emergency department for evaluation persistent cough. Patient reports approximately 10 days ago he had onset of symptoms and was evaluated at the urgent care. Patient was diagnosed with bronchitis and started on albuterol and a prednisone taper. Patient has completed the prednisone but states that his symptoms are still present. Related Data Allergies Allergy/AdvReac Type Severity Reaction Status Date / Time morphine Allergy Severe NAUSEA, Verified 11/14/23 09:42 VOMITING Penicillins Allergy Intermediate Unknown Verified 11/14/23 09:42 Review of Systems Review of Systems: All systems reviewed & are unremarkable except as noted in HPI and below PMFSH Past Medical History Medical History BMI 33.0-33.9,adult BMI 36.0-36.9,adult BMI 37.0-37.9, adult Body mass index (BMI) of 40.1 to 44.9 in adult COVID-19 Diabetes mellitus A1C on 02/18/20 was 5.9 Gastroesophageal reflux disease Herpes zoster Hypercholesterolemia Morbid (severe) obesity due to excess calories Obesity Surgical History Surgical History H/O cardiac catheterization History of cholecystectomy 1992 Hx of rotator cuff surgery Right 2009-Dr. Lei Family History Family History Father Hypertension Alzheimer disease Grandparent Family history of lung cancer Mother Family history of coronary artery disease Dementia Hyperlipidemia Stented coronary artery Sibling COVID-19 Other Family history of heart disease in male family member before age 55 Social History Social History Smoking status: Never smoker Second hand tobacco smoke exposure: No Alcohol intake: never Substance use: never Substance use type: does not use Lack of Transportation: No Lack of Food: Never True Current Housing: I Have Housing Concerned About Future Housing: No Difficulty Paying Gas/Electric Bills: No Difficulty Paying for Meds: No Currently Unemployed: No Education: High School Diploma/GED Difficulty w/ Childcare or Family Care: No Living arrangements: with family Occupation/Education: occupation 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 HEAD: normocephalic, atraumatic. EYES: PERRLA/EOMI, conjunctivae clear. NOSE: Normal no drainage EARS:TMS clear with good light reflex. THROAT: Pharynx clear, no exudate. NECK: Supple. No adenopathy, no masses. RESPIRATORY: Airway patent, respirations nonlabored. Clear to auscultation bilaterally, no rales, rhonchi, wheezing. CARDIOVASCULAR: Regular rate and rhythm without murmurs rubs or gallops. ABDOMINAL: Soft, nontender, nondistended, normal bowel sounds MUSCULOSKELETAL: Moves all extremities. Strength/ROM intact, No edema, No calf tenderness. NEURO: Alert. Cranial nerves II through XII intact. Grossly intact SKIN: Warm, dry. Normal Color Course Course Emergency Course: 58-year-old male presenting to the ED for evaluation worsening cough congestion. Patient is afebrile with no leukocytosis and a stable hemoglobin. Patient is not hypoxic nor tachycardic. Patient did test positive for influenza A. Patient's symptoms have been ongoing for greater than 10 days so he is being treated with antibiotics for concern for underlying bacterial infection. Patient still has his albuterol inhaler at home, patient was provided Tessalon Perles and patient was started on an
--- NOTE | 2023-11-20 00:27 | PC.NURSE ---
Per EDP Dr. Salvador blood cultures not needed for patient
[2023-11-20] MEDS: AMOXICILLIN/CLAVULANATE K 875-125 MG TAB 1 TABLET PO (00:31)
[2023-11-20] MEDS: AZITHROMYCIN 250 MG TABLET 500 MG PO (00:32)
[2023-11-20 00:43] VITALS: O2SAT 96
[2023-11-20 00:46] VITALS: BP 140/88; PULSE 80; RESP 16; TEMP 37; O2SAT 100
== END 2023-11-20 00:48 | disposition home or self-care (01) ==
PROVIDERS: Emergency Provider Emergency Medicine; PCP Family Medicine
DX: J10.1 Influenza due to other identified influenza virus with other respiratory manifestations (principal); Z20.822 Contact with and (suspected) exposure to COVID-19; E11.9 Type 2 diabetes mellitus without complications; E78.00 Pure hypercholesterolemia, unspecified; E66.01 Morbid (severe) obesity due to excess calories; Z68.35 Body mass index [BMI] 35.0-35.9, adult; K21.9 Gastro-esophageal reflux disease without esophagitis; Z86.16 Personal history of COVID-19; Z90.49 Acquired absence of other specified parts of digestive tract
CPT/HCPCS: 36415; 71046; 80053; 85025; 87637; 93005; 99283; A9270

== ENCOUNTER 2024-08-02 00:39 | Day surgery (SDC) | payer BC, SELFPAY ==
[2024-07-12 12:10] VITALS: BMI 35.2
[2024-08-02 06:25] VITALS: BP 169/91; PULSE 63; RESP 18; TEMP 36.2; O2SAT 95
[2024-08-02] MEDS: LACTATED RINGERS 1,000 ML 150 ML IV CONT (06:35)
--- NOTE | 2024-08-02 07:19 | PM.HPGS ---
History of Present Illness History of Present Illness Consent: Risks, benefits, and alternatives have been discussed and questions answered. Patient agrees to proceed with procedure. Chief complaint: GERD without esophagitis, dysphagia unspecified Narrative: Brain Cortez is a 59 year old male with h/o dysphagia Review of Systems Review of Systems: All systems reviewed & are unremarkable except as noted in HPI and below PMFSH Past Medical History Medical History BMI 36.0-36.9,adult COVID-19 Diabetes mellitus A1C on 02/18/20 was 5.9 Gastroesophageal reflux disease Herpes zoster Hypercholesterolemia Morbid (severe) obesity due to excess calories Obesity Surgical History Surgical History H/O cardiac catheterization History of cholecystectomy 1991 Hx of rotator cuff surgery Right 2009-Dr. Lei Family History Family History Father Hypertension Alzheimer disease Grandparent Family history of lung cancer Mother Family history of coronary artery disease Dementia Hyperlipidemia Stented coronary artery Sibling COVID-19 Other Family history of heart disease in male family member before age 55 Social History Social History Smoking status: Never smoker Second hand tobacco smoke exposure: No Alcohol intake: never Substance use: never Substance use type: does not use Lack of Transportation: No Lack of Food: Never True Current Housing: I Have Housing Concerned About Future Housing: No Difficulty Paying Gas/Electric Bills: No Difficulty Paying for Meds: No Currently Unemployed: No Education: High School Diploma/GED Difficulty w/ Childcare or Family Care: No Living arrangements: with family Occupation/Education: occupation 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 Gender identity (if verbalized by the patient): Male Spiritual care concerns: No Meds Home Medications and Allergies Home Medications Medication Instructions Recorded Confirmed Type nabumetone 500 mg tablet 500 mg PO DAILY PRN pain #90 tabs 02/17/24 08/02/24 Rx atorvastatin 20 mg tablet (Lipitor) 20 mg PO DAILY #90 tabs 03/21/24 08/02/24 Rx citalopram 40 mg tablet (Celexa) 40 mg PO DAILY #90 tabs 05/17/24 08/02/24 Rx Allergies Allergy/AdvReac Type Severity Reaction Status Date / Time morphine Allergy Severe NAUSEA, Verified 08/02/24 06:24 VOMITING Penicillins Allergy Intermediate Unknown Verified 08/02/24 06:24 Vital Signs Vital Signs - 24 hr 08/02/24 06:25 Temperature 97.2 F L Pulse Rate 63 Respiratory Rate 18 Blood Pressure 169/91 H Pulse Oximetry 95 Oxygen Delivery Room Air Exam Const: General: comfortable and no acute distress HENMT: Face/Nose/Sinus: Normal nares present Eyes: General: appearance normal, both eyes and all related structures Neck: Neck: no JVD Resp: Auscultation: clear to auscultation bilaterally Cardio: Rate: regular rate Rhythm: regular rhythm GI: Inspection: non-distended GI Palp: Yes Soft to palpation Skin: General skin exam: normal color Neuro: General: gait normal Speech: normal speech Extrem: General: normal to inspection Psych: Mental Status: mental status grossly normal Assessment and Plan Assessment and plan (1) Dysphagia: Code(s): R13.10 - Dysphagia, unspecified Status: Acute Assessment and Plan: egd, will assess if needs dilation
--- NOTE | 2024-08-02 07:25 | WPDANESEPPF ---
Anes - Initial Pre Proc Eval Procedure: Operation Date: 08/02/24 07:30 Proposed Procedures p Esophagogastroduodenoscopy - Milan Bright MD Date/Time: 08/02/24 07:25 Surgeon: Milan Bright MD Pre Op Diagnosis: GERD without esophagitis, dysphagia unspecified Patient Data Age: 59 Gender: M Height: 1.91 m Weight: 132.2 kg Last Vital Signs Temp 97.2 F L 08/02/24 06:25 Pulse 63 08/02/24 06:25 Resp 18 08/02/24 06:25 BP 169/91 H 08/02/24 06:25 Pulse Ox 95 08/02/24 06:25 O2 Del Method Room Air 08/02/24 06:25 Allergies Allergy/AdvReac Type Severity Reaction Status Date / Time morphine Allergy Severe NAUSEA, Verified 08/02/24 06:24 VOMITING Penicillins Allergy Intermediate Unknown Verified 08/02/24 06:24 Home Medications Medication Instructions Recorded Confirmed Type nabumetone 500 mg tablet 500 mg PO DAILY PRN pain #90 tabs 02/17/24 08/02/24 Rx atorvastatin 20 mg tablet (Lipitor) 20 mg PO DAILY #90 tabs 03/21/24 08/02/24 Rx citalopram 40 mg tablet (Celexa) 40 mg PO DAILY #90 tabs 05/17/24 08/02/24 Rx Patient hx anesthesia problems: none Family hx anesthesia problems: none Results Review: All pre-operative results and documents have been reviewed as part of the pre-operative evaluation. [facility] Past Medical History Medical History BMI 36.0-36.9,adult COVID-19 Diabetes mellitus A1C on 02/18/20 was 5.9 Gastroesophageal reflux disease Herpes zoster Hypercholesterolemia Morbid (severe) obesity due to excess calories Obesity Surgical History Surgical History H/O cardiac catheterization History of cholecystectomy 1992 Hx of rotator cuff surgery Right 2009-Dr. Lei Family History Family History Father Hypertension Alzheimer disease Grandparent Family history of lung cancer Mother Family history of coronary artery disease Dementia Hyperlipidemia Stented coronary artery Sibling COVID-19 Other Family history of heart disease in male family member before age 55 Social History Social History Smoking status: Never smoker Second hand tobacco smoke exposure: No Alcohol intake: never Substance use: never Substance use type: does not use Lack of Transportation: No Lack of Food: Never True Current Housing: I Have Housing Concerned About Future Housing: No Difficulty Paying Gas/Electric Bills: No Difficulty Paying for Meds: No Currently Unemployed: No Education: High School Diploma/GED Difficulty w/ Childcare or Family Care: No Living arrangements: with family Occupation/Education: occupation 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 Informed Consent: The patient's anesthetic plan and its attendant risks and benefits were discussed with the patient/family/POA. Questions were solicited and answers provided to the satisfaction of the patient/family/POA.
[2024-08-02 07:46] VITALS: BP 133/79; PULSE 62; RESP 18; O2SAT 97
[2024-08-02 07:56] VITALS: BP 133/80; PULSE 60; RESP 18; O2SAT 95
[2024-08-02 08:06] VITALS: BP 138/87; PULSE 60; RESP 18; O2SAT 93
== END 2024-08-02 08:15 | disposition home or self-care (01) ==
PROVIDERS: PCP Family Medicine; Referring Provider Physician Assistant Medical; Visit Provider Internal Medicine Gastroenterology
PROC: 0DJ08ZZ Inspection of Upper Intestinal Tract, Via Natural or Artificial Opening Endoscopic (ICD-10-PCS; CPT 43235; principal; 2024-08-02 07:30)
DX: K22.2 Esophageal obstruction (principal); K44.9 Diaphragmatic hernia without obstruction or gangrene; K29.50 Unspecified chronic gastritis without bleeding; K21.9 Gastro-esophageal reflux disease without esophagitis; E78.00 Pure hypercholesterolemia, unspecified; E11.9 Type 2 diabetes mellitus without complications; E66.9 Obesity, unspecified; Z68.36 Body mass index [BMI] 36.0-36.9, adult
CPT/HCPCS: 43249; 43239; 88305; C1726; J2704; J7120

== ENCOUNTER 2025-01-15 09:30 | Emergency (ER) | payer BC, SELFPAY ==
--- NOTE | 2025-01-15 09:33 | ED_ITS ---
HPI - URI/Sore Throat General Chief Complaint: Upper Respiratory Infection Stated Complaint: Sore Throat Time Seen by Provider: 01/15/25 09:55 Source: patient and RN notes reviewed Mode of arrival: ambulatory Limitations: no limitations History of Present Illness HPI Narrative: 59-year-old sinus drainage, headache, body aches, sore throat. Reports his , daughter and granddaughter have strep throat. He has not taken any [id number] medications. MD elicited complaint: sore throat and rhinorrhea Related Data Allergies Allergy/AdvReac Type Severity Reaction Status Date / Time morphine Allergy Severe NAUSEA, Verified 01/15/25 09:33 VOMITING Penicillins Allergy Intermediate Unknown Verified 01/15/25 09:33 Review of Systems Review of Systems: CONSTITUTIONAL: Reports malaise. Denies fever. EYES: Denies visual changes, redness, or discharge. ENT: Reports rhinorrhea, congestion, and sore throat. CARDIOVASCULAR: Denies chest pain, palpitations, or edema. RESPIRATORY: Denies cough. Denies dyspnea. GASTROINTESTINAL: Denies abdominal pain, nausea, vomiting, diarrhea SKIN: Denies rash or itching. MUSCULOSKELETAL: Reports myalgia. NEUROLOGIC: Reports headache. All systems reviewed & are unremarkable except as noted in HPI and below PMFSH Past Medical History Medical History Herpes zoster COVID-19 BMI 36.0-36.9,adult Morbid (severe) obesity due to excess calories Diabetes mellitus A1C on 02/18/20 was 5.9 Gastroesophageal reflux disease Hypercholesterolemia Obesity Surgical History Surgical History H/O cardiac catheterization Hx of rotator cuff surgery Right 2009-Dr. Lei History of cholecystectomy 1991 Family History Family History Father Hypertension Alzheimer disease Grandparent Family history of lung cancer Mother Family history of coronary artery disease Dementia Hyperlipidemia Stented coronary artery Sibling COVID-19 Other Family history of heart disease in male family member before age 55 Social History Social History Smoking status: Never smoker Second hand tobacco smoke exposure: No Alcohol intake: never Substance use: never Substance use type: does not use Do You Feel Safe in your Home?: Yes Lack of Transportation: No Lack of Food: Never True Current Housing: I Have Housing Concerned About Future Housing: No Difficulty Paying Gas/Electric Bills: No Difficulty Paying for Meds: No Currently Unemployed: No Education: High School Diploma/GED Difficulty w/ Childcare or Family Care: No Living arrangements: with family Occupation/Education: occupation 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 There is no relevant family history pertinent to the presenting complaint Exam Narrative: GENERAL: Well-appearing, well-nourished, and in no acute distress. HEAD: Normocephalic EYES: PERRLA, conjunctivae clear ENT: Nares clear, turbinates edematous and erythematous, clear discharge. Mucous membranes moist. TM pearly johansen with dull light reflex bilaterally; no tragal tenderness. Oropharynx not erythematous without lesions. Tonsils not enlarged and without exudate, no drooling, no hoarseness, no trismus, uvula midline. NECK: Supple. No lymphadenopathy CHEST: Clear to auscultation, breath sounds equal. No wheezing, rhonchi, rales, or stridor. No respiratory distress, speaks in full sentences. HEART: Regular rate and rhythm. No murmur heard. SKIN: Warm, dry, no rash. NEURO: Alert and oriented x3. PSYCH: Normal mood and affect Course Course Emergency Course: Patient is aware of diagnosis, understands and agrees to treatment plan. Anticipatory guidance given. Patient agrees to follow-up as directed and is aware of reasons to seek care at the emergency department. Portions of this record may have been created with voice recognition software Level of Care: Express Care Visit Vital Signs Vital signs: Reviewed. MDM - URI/Sore Throat MDM Narrative Medical decision making narrative: Differential diagnosis considered: Louis virus, strep pharyngitis, allergic rhinitis, upper respiratory tract infection, sinusitis, rhinosinusitis, nasopharyngitis. viral pharyngitis, otitis media, otitis externa, pneumonia, bronchitis, viral cough syndrome, viral syndrome, and influenza. Exam findings show no acute concerns or changes; patient is non-toxic appearing and is in no distress. Patient is appropriate for outpatient treatment and follow-up. Lab Data Attestation: I reviewed the patient's lab results. Critical Care Time Critical Care Time Critical Care Time: No Discharge Plan Discharge Clinical Impression: Exposure to strep throat, Acute sore throat Patient Disposition: Home, Self-Care Condition: Stable Instructions: Antibiotic Form, Strep Throat (ED) Additional Instructions: -Take the medication as prescribed. Throw away the toothbrush after 24hours of antibiotic. -Eat and drink things that are easy to swallow, like tea or soup, or popsicles to suck on. -Oral rinses such as: Salt water gargles and/or may use topical anesthetic (eg. Chloraseptic spray) or lozenges to relieve dryness or throat pain). -Take Tylenol and ibuprofen as needed for pain and fever as directed. -Frequent hand washing or hand small arms artillery repairer is one of the best ways to prevent spread of infection. -Follow up with primary care provider in 2-3 days if condition is not improving; or seek ER visit if you have trouble breathing, cannot drink enough fluids, have muffled voice, difficulty opening your mouth, or severe swelling. Patient Language: Andorran Prescriptions: New cefdinir 300 mg capsule 300 mg PO Q12H 10 Days Qty: 20 0RF No Action nystatin 100,000 unit/gram powder 1 applic topical BID Qty: 60 0RF citalopram [Celexa] 40 mg tablet 40 mg PO DAILY Qty: 90 3RF rosuvastatin 20 mg tablet 20 mg PO DAILY Qty: 90 1RF metformin 500 mg tablet 500 mg PO BID Qty: 180 0RF cholecalciferol (vitamin D3) 1,250 mcg (50,000 unit) capsule 1,250 mcg PO WEEKLY Qty: 8 0RF Follow-up/Referrals: Aram Quintana MD [Primary Care Provider] - Stand Alone Forms: Work/School Release IP Time of Disposition: 10:04
[2025-01-15 09:44] VITALS: BP 162/100; PULSE 75; RESP 16; TEMP 35.9; O2SAT 96
[2025-01-15 09:50] LABS: EDSTREPNEGPOS1 Negative (Negative)
== END 2025-01-15 10:10 | disposition home or self-care (01) ==
PROVIDERS: Emergency Provider Nurse Practitioner; PCP Family Medicine
DX: J02.0 Streptococcal pharyngitis (principal); Z20.818 Contact with and (suspected) exposure to other bacterial communicable diseases; E11.9 Type 2 diabetes mellitus without complications; Z79.84 Long term (current) use of oral hypoglycemic drugs; E78.00 Pure hypercholesterolemia, unspecified; K21.9 Gastro-esophageal reflux disease without esophagitis; E66.01 Morbid (severe) obesity due to excess calories; Z68.35 Body mass index [BMI] 35.0-35.9, adult; Z86.16 Personal history of COVID-19
CPT/HCPCS: 87081; 87880; 99213; G0463

== ENCOUNTER 2025-08-15 18:27 | Emergency (ER) | payer BC, SELFPAY ==
[2025-08-15 18:38] VITALS: BP 147/77; PULSE 68; RESP 18; TEMP 36.3; O2SAT 97
--- NOTE | 2025-08-15 18:45 | ED.URI ---
HPI - URI/Sore Throat General Chief Complaint: Upper Respiratory Infection Stated Complaint: scratchy throat/pressure behind eyes Time Seen by Provider: 08/15/25 18:45 Source: patient, RN notes reviewed and old records reviewed Mode of arrival: ambulatory Limitations: no limitations History of Present Illness HPI Narrative: 60-year-old male presents to the [facility] with sinus pressure, scratchy throat that started at 5:30 a.m. this morning. No treatment prior to arrival. Denies fevers. States that his has had the same symptoms. Related Data Allergies Allergy/AdvReac Type Severity Reaction Status Date / Time morphine Allergy Severe NAUSEA, Verified 08/15/25 18:29 VOMITING Penicillins Allergy Intermediate Unknown Verified 08/15/25 18:29 Review of Systems Review of Systems: All systems reviewed & are unremarkable except as noted in HPI and below Constitutional: Constitutional: Reports no additional constitutional complaints ENT: Reports as per HPI Cardiovascular: Cardiovascular: Reports no additional cardiovascular complaints, Denies chest pain and Denies dyspnea Respiratory: Respiratory: Reports no additional respiratory complaints, Denies chest congestion, Denies cough and Denies dyspnea Musculoskeletal: Musculoskeletal: Reports no additional musculoskeletal complaints Integumentary/Breasts: Skin/Breast: Reports system reviewed and no additional complaints, except as docu PMFSH Past Medical History Medical History Herpes zoster COVID-19 BMI 36.0-36.9,adult Morbid (severe) obesity due to excess calories Diabetes mellitus A1C on 02/18/20 was 5.9 Gastroesophageal reflux disease Hypercholesterolemia Obesity Surgical History Surgical History H/O cardiac catheterization Hx of rotator cuff surgery Right 2009-Dr. Lei History of cholecystectomy 1991 Family History Family History Father Hypertension Alzheimer disease Grandparent Family history of lung cancer Mother Family history of coronary artery disease Dementia Hyperlipidemia Stented coronary artery Sibling COVID-19 Other Family history of heart disease in male family member before age 55 Social History Social History Smoking status: Never smoker Second hand tobacco smoke exposure: No Alcohol intake: never Substance use: never Substance use type: does not use Do You Feel Safe in your Home?: Yes Lack of Transportation: No Lack of Food: Never True Current Housing: I Have Housing Concerned About Future Housing: No Difficulty Paying Gas/Electric Bills: No Difficulty Paying for Meds: No Currently Unemployed: No Education: High School Diploma/GED Difficulty w/ Childcare or Family Care: No Living arrangements: with family Occupation/Education: occupation 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 There is no relevant family history pertinent to the patient complaint. Exam Const: General: cooperative, healthy appearing, comfortable, no acute distress, well developed, alert and well nourished Nutritional Appearance: well nourished Orientation/consciousness: patient oriented x3 Limitations: no limitations HENMT: Head: normal to inspection Ears: hearing grossly normal bilaterally, external ears normal, TM's normal bilaterally, EAC's normal, mastoids normal and no periauricular adenopathy Mouth: Yes Normal oral and palatal mucosa present, Yes lip normal, Yes tongue normal and Yes moist mucous membranes Throat: posterior oropharynx normal, uvula midline and no uvular edema Eyes: General: appearance normal, both eyes and all related structures Alignment and Position: alignment normal Neck: Neck: normal visual inspection, full ROM, no lymphadenopathy and no meningeal signs Chest: Chest palpation & inspection: normal inspection of the chest Resp: Effort & Inspection: normal respiratory effort and able to speak in complete sentences Auscultation: clear to auscultation bilaterally, no crackles, no rales, no rhonchi and no wheezes Cardio: Rate: regular rate Skin: General skin exam: normal color and no rashes or lesions noted Neuro: General: patient oriented x3, gait normal, moves all extremities and no meningeal signs Cognition (Neuro): normal cognition Speech: normal speech Gait exam (Neuro): Normal gait present Extrem: General: normal to inspection, full ROM, capillary refill normal and normal gait Psych: Appearance: grossly normal and well kempt Mental Status: mental status grossly normal Speech and movement: Normal speech and movement present and Clear speech present Affect: normal affect Attitude: cooperative Course Course Level of Care: Express Care Visit Vital Signs Vital signs: Vital Signs Temperature 97.4 F L 08/15/25 18:38 Pulse Rate 68 08/15/25 18:38 Respiratory Rate 18 08/15/25 18:38 Blood Pressure 147/77 H 08/15/25 18:38 Pulse Oximetry 97 08/15/25 18:38 Oxygen Delivery Room Air 08/15/25 18:38 Temperature 97.4 F L 08/15/25 18:38 Pulse Rate 68 08/15/25 18:38 Respiratory Rate 18 08/15/25 18:38 Blood Pressure 147/77 H 08/15/25 18:38 Pulse Oximetry 97 08/15/25 18:38 Oxygen Delivery Room Air 08/15/25 18:38 Reviewed MDM - URI/Sore Throat MDM Narrative Medical decision making narrative: Patient sitting in exam room. Patient is nontoxic, vitals stable. Patient presents with about 12 hours of scratchy throat, sinus pressure. Patient strep test is negative, will culture. Patient declined flu and COVID testing. At home has multiple family members with the same symptoms No treatment prior to arrival Patient appropriate for outpatient treatment with close follow-up Discharge instructions reviewed with patient, as well as provided in writing per nursing staff. The instructions also include specific and strict return/GO TO THE ER as well as f/u information. All questions have been answered, and the patient deny any further questions with discharge and discharge plan. Some parts of this dictation were generated by voice recognition software and may contain typographical and/or grammatical inaccuracies. Differential Diagnosis Differential diagnosis: Likely upper respiratory infection, otitis media, sinusitis, viral infection, bronchitis, influenza and pharyngitis Lab Data Labs: Lab Results 08/15/25 Range/Units 18:36 POC Grp A Strep Screen Negative (Negative) Reviewed Critical Care Time Critical Care Time Critical Care Time: No Discharge Plan Discharge Clinical Impression: Upper respiratory infection Qualifiers: URI type: unspecified viral URI Qualified Code(s): J06.9 - Acute upper respiratory infection, unspecified Patient Disposition: Home Condition: Stable Instructions: Antibiotic Form, Upper Respiratory Infection (ED) Additional Instructions: Your rapid strep swab was negative today at [facility]. A throat culture will be sent to the laboratory for further testing. If the test is positive, you will receive a phone call within 48 hours and an appropriate antibiotic will be initiated at that time. Your symptoms are likely due to a viral illness, which is not treated with antibiotics. Typically viral infections last 7-10 days, can linger for couple of weeks. It is very important to treat your symptoms. Drink plenty of water, Gatorade, Pedialyte, ice pops or Jell-O. -Alternate Tylenol and Motrin per package directions for fever or pain. You can alternate every 4 hours -Antihistamine medication such as Zyrtec/Claritin/Sara during the day can help improve symptoms. -doing daily nasal irrigations can help relieve pressure your sinuses. Things like a Neti pot -Use Flonase twice a day for 5 days then daily to help reduce the inflammation and dry up your sinuses. -You can also use Mucinex. Be sure to drink plenty of water with this medication at least 8 ounces with every dose and it is important to drink 8 to 10 glasses of water per day. Water is a natural decongestant -Eat and drink things that are easy to swallow, like tea or soup, or popsicles. -Oral rinses such as: Salt water gargles and/or may use topical anesthetic (eg. Chloraseptic spray) or lozenges to relieve dryness or throat pain). -Frequent hand washing or hand court attendant is one of the best ways to prevent spread of infection. -Using a vaporizer or humidifier at night will also help thin secretions and help with coughing up phlegm. -Follow up with primary care provider in 7-10 days if condition is not improving - For new or worsening symptoms go directly to the nearest ER Patient Language: Lithuanian Prescriptions: No Action nystatin 100,000 unit/gram powder 1 applic topical BID Qty: 60 0RF rosuvastatin 20 mg tablet 20 mg PO DAILY Qty: 90 1RF citalopram [Celexa] 40 mg tablet 40 mg PO DAILY Qty: 90 3RF metformin 500 mg tablet extended release 24 hr 1,000 mg PO DAILY Qty: 180 0RF omeprazole 40 mg capsule,delayed release(DR/EC) 40 mg PO DAILY Qty: 90 0RF Sunosi 75 mg tablet 75 mg PO DAILY Qty: 30 0RF nabumetone 500 mg tablet 500 mg PO BID Qty: 180 3RF Follow-up/Referrals: Aram Quintana MD [Primary Care Provider, Family Practice] - 2 Weeks Stand Alone Forms: Work/School Release IP Time of Disposition: 19:02
[2025-08-15 18:49] LABS: EDSTREPNEGPOS1 Negative (Negative)
== END 2025-08-15 19:15 | disposition home or self-care (01) ==
PROVIDERS: Emergency Provider Nurse Practitioner; PCP Family Medicine
DX: J06.9 Acute upper respiratory infection, unspecified (principal); E11.9 Type 2 diabetes mellitus without complications; Z79.84 Long term (current) use of oral hypoglycemic drugs; E78.00 Pure hypercholesterolemia, unspecified; K21.9 Gastro-esophageal reflux disease without esophagitis; E66.01 Morbid (severe) obesity due to excess calories; Z68.34 Body mass index [BMI] 34.0-34.9, adult; Z86.16 Personal history of COVID-19
CPT/HCPCS: 87081; 87880; 99213; G0463